=== PATIENT | male | born 1950 | race Hispanic/Latino ===

== ENCOUNTER 2019-08-23 19:11 | Emergency (ER) | payer MEDICARE ==
--- OUTSIDE RECORDS SUMMARY | 2019-08-23 19:14 | XMS REPORT ---
Author Author [facility] t Organization [facility] Address [address] [place] [address] Phone Unavailable Care Team Providers Care Shop Tailor Apprentice Name Role Phone Unavailable Unavailable Payers Payer Name Policy Type Policy Number Effective Date Expiration Date S ource Problems This patient has no known problems. Allergies, Adverse Reactions, Alerts Allergy Name Allergy Type Status Severity Reaction(s) Onset Date Inacti ve Date Treating Clinician Comments Source No Known Allergies DA Active U 2019-07-23 00:00:00 [facility] Medications This patient has no known medications. Procedures This patient has no known procedures. Results Test Description Test Time Test Comments Results Result Comments Source UA RFLX MICR CULT IF INDICATED 2019-07-23 18:48:00 Test Item UA COLOR (test code = COLU) Yellow Yellow UA APPEARANCE (test code = APPU) Clear Clear UA GLUCOSE DIPSTICK (test code = DGLUU) Negative Negative UA BILIRUBIN DIPSTICK (test code = BILU) Negative Negative UA KETONE DIPSTICK (test code = KETU) Negative mg/dL Negative UA SPECIFIC GRAVITY (test code = SGU) 1.012 <1.030 UA BLOOD DIPSTICK (test code = MAYTE) 2+ Negative A UA PH DIPSTICK (test code = ROSA) 6.0 5.0-8.0 UA PROTEIN DIPSTICK (test code = PROU) NEGATIVE mg/dL Negative UA UROBILINOGEN DIPSTICK (test code = URO) Negative mg/dL Negative UA NITRITE DIPSTICK (test code = MISHEL) Negative Negative UA LEUKOCYTE ESTERASE DIPSTICK (test code = LEUU) NEGATIVE Nega tive UA WBC (test code = WBCUR) 0-3 /HPF <4-5 < 10 WBC/HPF = PYURIA ABSENT URINE CULTURE NOT INDICATED UA RBC (test code = RBCU) 31-40 /HPF <4-5 A UA BACTERIA (test code = BACU) None /HPF None-Rare UA MUCUS (test code = MUCU) Rare /LPF <Rare SOURCE OF URINE: VOIDEDIndication for culture: Dysuria/Frequency COMPREHENSIVE METABOLIC [id number] 18:43:00* Test Item Value Reference Range Interpretation Comments SODIUM (test code = NA) 134 mmol/L 137-145 L POTASSIUM (test code = K) 3.6 mmol/L 3.4-5.0 N CHLORIDE (test code = CL) 98 mmol/L 98-107 N CARBON DIOXIDE (test code = CO2) 23 mmol/L 22-30 N GLUCOSE (test code = GLU) 137 mg/dL 74-106 H BLOOD UREA NITROGEN (test code = BUN) 16 mg/dL 9-20 N GLOMERULAR FILTRATION RATE (test code = GFR) 79 >60 The estimated glomerular filtration rate is computed usingpatient race, age (>18), sex, and serum creatinine. If anyof the needed data elements are missing the Laboratory cannot compute an estimation of the glomerular filtration rate. CREATININE (test code = CREAT) 1.0 mg/dL 0.7-1.3 N TOTAL PROTEIN (test code = PROT) 7.7 g/dL 6.3-8.2 N ALBUMIN (test code = ALB) 4.4 g/dL 3.5-5.0 N CALCIUM (test code = CA) 9.2 mg/dL 8.4-10.2 N BILIRUBIN TOTAL (test code = BILT) 0.9 mg/dL 0.2-1.3 N BILIRUBIN CONJUGATED (test code = BILCON) 0 mg/dL 0-0.3 N ~~~~~~~~~~~~~~~~~~~~~~~~~~~~~~~~~~~~~~~~~~~~~~~~~~~~~~~~~~~~CONJUGATED BILIRUBIN IS THE REPLACEMENT ASSAY FOR DIRECTBILIRUBIN.~~~~~~~~~~~~~~~~~~~~~~~~~~~~~~~~~~~~~~~~~~~~~~~~~~~~~~~~~~~~ BILIRUBIN UNCONJUGATED (test code = BILUNC) 0.7 mg/dL 0-1.1 N SGOT/AST (test code = AST) 26 U/L 15-46 N SGPT/ALT (test code = ALT) 26 U/L 13-69 N ALKALINE PHOSPHATASE (test code = ALKP) 86 U/L 38-126 N CBC W/AUTO [id number] 18:30:00* Test Item Value Reference Range Interpretation Comments WHITE BLOOD CELL (test code = WBC) 14.1 x10 3/uL 5.0-12.0 H RED BLOOD CELL (test code = RBC) 5.12 x10 6/uL 4.70-6.10 N HEMOGLOBIN (test code = HGB) 15.2 g/dL 14.0-18.0 N HEMATOCRIT (test code = HCT) 43.6 % 37.0-49.0 N MEAN CELL VOLUME (test code = MCV) 85 fL 80-94 N MEAN CELL HGB (test code = MCH) 29.7 pg 27-31 N MEAN CELL HGB CONCENTRATION (test code = MCHC) 34.9 g/dL 33-37 N RED CELL DISTRIBUTION WIDTH (test code = RDW) 13.0 % 11.5-15. 5 N PLATELET COUNT (test code = PLT) 274 x10 3/uL 130-400 N MEAN PLATELET VOLUME (test code = MPV) 9.6 fL 9.4-16.4 N NEUTROPHIL % (test code = NT%) 86.5 % 43-65 H IMMATURE GRANULOCYTE % (test code = IG%) 0.4 % 0.0-2.0 N LYMPHOCYTE % (test code = LY%) 8.9 % 20.5-45.5 L MONOCYTE % (test code = MO%) 4.1 % 5.5-11.7 L EOSINOPHIL % (test code = EO%) 0.0 % 0.9-2.9 L BASOPHIL % (test code = BA%) 0.1 % 0.2-1.0 L NUCLEATED RBC % (test code = NRBC%) 0.0 % 0-1.0 N NEUTROPHIL # (test code = NT#) 12.20 x10 3/uL 2.2-4.8 H IMMATURE GRANULOCYTE # (test code = IG#) 0.05 x10 3/uL 0-0.03 H LYMPHOCYTE # (test code = LY#) 1.25 x10 3/uL 1.3-2.9 L MONOCYTE # (test code = MO#) 0.58 x10 3/uL 0.3-0.8 N EOSINOPHIL # (test code = EO#) 0.00 x10 3/uL 0.0-0.2 N BASOPHIL # (test code = BA#) 0.01 x10 3/uL 0.0-0.1 N TROPONIN I [id number] 18:29:00* Test Item Value Reference Range Interpretation Comments TROPONIN I RAPID (test code = TROPIRAP) 0.01 ng/mL 0.00-0.079 N ISTAT TROPONIN I CRITERIA0.00-0.08 ng/mL - Negative>0.08 ng/mL - Positive The use of serial sampling and testing protocol is arecommended practice.An elevated troponin level alone is often not sufficient fordiagnosis of myocardial infarction. Troponin results obtained by different assays may vary.Evaluation of the extent of myocardial damage based onincrease of troponin would be valid only if similarmethodology is used.
[2019-08-23] MEDS ORDERED: LIDOCAINE JELLY 2% 10ML URO-JET ONE (19:57)
[2019-08-23] MEDS ORDERED: LIDOCAINE JELLY 2% 10ML URO-JET TOP ONE (20:00)
--- NOTE | 2019-08-23 20:15 | NUR ---
Urine output 500 mL upon Roberson catheter insertion
--- NOTE | 2019-08-23 20:25 | Emergency Department Note ---
History of Present Illnes History of Present Illness Chief Complaint: Genitourinary History of Present Illness This is a 69 year old male PRESENTS TO THE ER C/O SUPRAPUBIC ABD PAIN ONSET THIS AM AFTER URINARY CATHRETER REMOVED BY DR. PETIT AT 1030 THIS AM AND HAS NOT HAD ANY URINE OUTPUT SINCE; PT DENIES FEVER/CHILLS, N/V/D;. Historian: Patient Arrival Mode: Car Onset (how long ago): hour(s) (6) Location: supra pubic Quality: supra pubic pain Radiation: non-radiation Severity: moderate Onset quality: gradual Duration (how long): hour(s) (6) Timing of current episode: constant Progression: worsening Context: recent illness Relieving factors: none Exacerbating factors: none Associated symptoms: denies other symptoms Past Medical/Family History Physician Review I have reviewed the patient's past medical and family history. Any updates have been documented here. Past Medical History Recent Fever: No Clinical Suspicion of Infectio: No New/Unexplained Change in Ment: No Past Medical History: Hyperlipedemia Past Surgical History: None Social History Smoking Cessation: Never Smoker Alcohol Use: None Any Illegal Drug Use: No Other Last Tetanus: UTD Review of Systems Review of Systems Constitutional: no symptoms EENTM: no symptoms Cardiovascular: no symptoms Respiratory: no symptoms Gastrointestinal: no symptoms Genitourinary: as per HPI Musculoskeletal: no symptoms Neurological: no symptoms Psychological: no symptoms Endocrine: no symptoms Hematological/Lymphatic: no symptoms Review of other systems All other systems reviewed and negative. Physical Exam Related Data Allergies: Coded Allergies: No Known Allergies (Unverified , 08/23/19) Triage Vital Signs Vital Signs Date Time Temp Pulse Resp B/P (MAP) Pulse Ox O2 Delivery O2 Flow Rate FiO2 08/23/19 19:35 99.1 86 18 155/88 98 Vital signs reviewed: Yes Physical Exam CONSTITUTIONAL Constitutional: well-developed, well-nourished HENT HENT: normocephalic, atraumatic, oropharynx clear/moist, nose normal HENT L/R: left ext ear normal, right ext ear normal EYES Eyes: PERRL, conjunctivae normal NECK Neck: ROM normal PULMONARY Pulmonary: effort normal, breath sounds normal CARDIOVASCULAR Cardiovascular: regular rhythm, heart sounds normal, capillary refill normal, normal rate GASTROINTESTINAL Abdominal: soft, bowel sounds normal, tender (supra pubic ) GENITOURINARY Genitourinary: penis normal SKIN Skin: warm, dry MUSCULOSKELETAL Musculoskeletal: ROM normal NEUROLOGICAL Neurological: alert, oriented x 3, no gross motor or sensory deficits PSYCHOLOGICAL Psychological: mood/affect normal, judgement normal Critical Care Time Subsequent provider I assumed direction of critical care for this patient from another provider of my specialty. Assessment & Plan Assessment & Plan Final Impression: (1) Urinary retention due to benign prostatic hyperplasia Assessment & Plan pt with urinary retention after morton cath removed by dr petit this am, i spoke with dr petit, place 18 italian coude catheter morton placed 400 cc urine out d/c home to follow up with dr petit Depart Disposition: HOME, SELF-CARE Last Vital Signs Date Time Temp Pulse Resp B/P (MAP) Pulse Ox O2 Delivery O2 Flow Rate FiO2 08/23/19 20:02 80 20 151/81 100 08/23/19 19:35 99.1 Medications in the ED Lidocaine HCl 10 ml ONCE ONCE TOP Last administered on 08/23/19at 20:01; Admin Dose 10 ML; Start 08/23/19 at 20:00; Stop 08/23/19 at 20:01; Status DC Lidocaine HCl 10 ml STK-MED ONCE .ROUTE ; Start 08/23/19 at 19:57; Stop 08/23/19 at 19:52; Status DC SUMIT NICHOLAS MD August 23, 2019 20:25
[2019-08-23 20:45] VITALS: BP 142/83
== END 2019-08-23 20:51 | disposition home or self-care (01) ==
LOC: ER 19:11
DX: R10.30 Lower abdominal pain, unspecified (principal); N40.1 Benign prostatic hyperplasia with lower urinary tract symptoms; R33.8 Other retention of urine; E78.5 Hyperlipidemia, unspecified
CPT/HCPCS: 51700; 87086; 87186; 99282

== ENCOUNTER 2019-08-25 12:43 | Emergency (ER) | payer MEDICARE ==
[~2019-08-25] VITALS: Ht 165.1 cm; Wt 79.4 kg
--- OUTSIDE RECORDS SUMMARY | 2019-08-25 12:46 | XMS REPORT ---
Author Author [facility] Organization [facility] Address [address] [place] [address] Phone Unavailable Care Team Providers Care Medicaid Service Coordinator Name Role Phone NONSTAFF PCP Unavailable Payers Payer Name Policy Type Policy Number Effective Date Expiration Date S john [employer] NA [facility] Problems Condition Name Condition Details Condition Category Status Onset Date Resolution Date Last Treatment Date Treating Clinician Comments Source Urinary retention due to benign prostatic hyperplasia Problem Ac tive [facility] Allergies, Adverse Reactions, Alerts Allergy Name Allergy Type Status Severity Reaction(s) Onset Date Inacti ve Date Treating Clinician Comments Source No Known Allergies DA Active U 2019-07-23 00:00:00 [facility] Social History Social Habit Start Date Stop Date Quantity Comments Source Sex Assigned At 1950 00:00:00 1950 00:[birth year]:00 Male [facility] Medications This patient has no known medications. Procedures This patient has no known procedures. Plan of Care Planned Activity Planned Date Details Comments Source Instructions Roberson Catheter Care [facility] Instructions Urinary Retention [facility] Encounters Start Date/Time End Date/Time Encounter Type Admission Type [facility] Facility Care Department Encounter ID Source 2019-08-23 19:11:00 2019-08-23 20:51:00 Departed Emergency Room [facility] [id number] [facility] Results Test Description Test Time Test Comments [...] URINE: VOIDEDIndication for culture: Dysuria/Frequency COMPREHENSIVE METABOLIC [id number] 18:43:00* Test Item Value Reference Range Interpretation [...] ALKP) 86 U/L 38-126 N CBC W/AUTO [id number] 18:30:00* Test Item Value Reference Range Interpretation [...] 0.01 x10 3/uL 0.0-0.1 N TROPONIN I [id number] 18:29:00* Test Item Value Reference Range Interpretation [...]
--- NOTE | 2019-08-25 13:04 | Emergency Department Note ---
History of Present Illnes History of Present Illness Chief Complaint: Genitourinary History of Present Illness This is a 69 year old male . Chief Complaint Comment HAS BLOOD IN URINE AROUND MEATUS AND IN BAG. HAS INDWELLING MENDEZ SINCE LAST NIGHT. Historian: Patient Arrival Mode: Car Onset (how long ago): day(s) (today) Radiation: non-radiation Onset quality: sudden Duration (how long): day(s) (today) Timing of current episode: constant Progression: other (denies pain ) Context: recent illness, recent surgery, recent immobilization, recent travel, trauma/injury, new medications, hx of DVT/PE, non-compliance w/ medications, other Relieving factors: none Exacerbating factors: none Treatments prior to arrival: none (KEVIN GLORIA NP) Past Medical/Family History Physician Review I have reviewed the patient's past medical and family history. Any updates have been documented here. (KEVIN GLORIA NP) Past Medical History Recent Fever: No Clinical Suspicion of Infectio: No New/Unexplained Change in Ment: No Past Medical History: Hyperlipedemia Other Medical History: PROSTATE Past Surgical History: None (KEVIN GLORIA NP) Social History Smoking Cessation: Never Smoker Alcohol Use: None Any Illegal Drug Use: No TB Exposure/Symptoms: No (KEVIN GLORIA NP) Family History Family history of heart diseas: No (KEVIN GLORIA NP) Other Last Tetanus: UTD Any Pre-Existing Lines (PICC,: Yes (mendez cath ) (KEVIN GLORIA NP) Review of Systems Review of Systems Constitutional: no symptoms EENTM: no symptoms Cardiovascular: no symptoms Respiratory: no symptoms Gastrointestinal: no symptoms Genitourinary: no symptoms, hematuria; discharge, dysuria, frequency, pain Musculoskeletal: no symptoms Neurological: no symptoms Psychological: no symptoms Endocrine: no symptoms Hematological/Lymphatic: no symptoms Review of other systems All other systems reviewed and negative. (KEVIN GLORIA NP) Physical Exam Related Data Allergies: Coded Allergies: No Known Allergies (Unverified , 08/23/19) Triage Vital Signs Vital Signs Date Time Temp Pulse Resp B/P (MAP) Pulse Ox O2 Delivery O2 Flow Rate FiO2 08/25/19 12:47 98.5 87 16 156/79 97 Vital signs reviewed: Yes (KEVIN GLORIA NP) Physical Exam CONSTITUTIONAL Constitutional: well-developed, well-nourished HENT HENT: normocephalic, atraumatic, oropharynx clear/moist, nose normal HENT L/R: left ext ear normal, right ext ear normal EYES Eyes: PERRL, conjunctivae normal NECK Neck: ROM normal PULMONARY Pulmonary: effort normal, breath sounds normal CARDIOVASCULAR Cardiovascular: regular rhythm, heart sounds normal, capillary refill normal, normal rate GASTROINTESTINAL Abdominal: soft, nontender, bowel sounds normal GENITOURINARY Genitourinary: exam deferred, other (noted sm blood clot tpo collection bag - denies pain / ua retention ) SKIN Skin: warm, dry MUSCULOSKELETAL Musculoskeletal: ROM normal NEUROLOGICAL Neurological: alert, oriented x 3, no gross motor or sensory deficits PSYCHOLOGICAL Psychological: mood/affect normal, judgement normal (KEVIN GLORIA NP) Critical Care Time Subsequent provider I assumed direction of critical care for this patient from another provider of my specialty. (KEVIN GLORIA NP) Assessment & Plan Reassessment Reassessment time: 13:00 Reassessment 69y m presented to ed c/o blood clot to mendez collection bag -denies pain / ua retention - pt seen last night in ed for ua retention hx bph, had ofley placed - woke up this am w/ blood clot to mendez bag pt concerned - Dr Sheriff in eval pt status - Dr Sheriff spoke w/ Dr Amara reed to d/c home f/u in office (KEVIN GLORIA NP) Assessment & Plan Final Impression: (1) HEMATURIA, UNSPECIFIED Assessment & Plan plan : 1. f/u w/ uro in 1-2 days w/o fail 2. return to ed as needed (KEVIN GLORIA INDUSTRIAL TECHNOLOGY EDUCATION TEACHER) Last Vital Signs Date Time Temp Pulse Resp B/P (MAP) Pulse Ox O2 Delivery O2 Flow Rate FiO2 08/25/19 12:47 98.5 87 16 156/79 97 (KEVIN GLORIA NP) Physician Attestation Provider Attestation The patient's history, exam findings, diagnostics, and a summary of any interventions or procedures was reviewed in detail with our JAIME. I personally interviewed and examined the patient, and I have reviewed and agree with the HPI andexam. My personal exam shows no abd tenderness, no CVAT, Mendez draining normal appearing yellow urine, small clot in Mendez bag. I confirm the diagnosis as documented by the JAIME. I have reviewed and agree with the care plan articulated in the disposition section. (BOB SHERIFF MD) KEVIN GLORIA NP August 25, 2019 13:04 BOB SHERIFF MD August 25, 2019 14:38
== END 2019-08-25 13:08 | disposition home or self-care (01) ==
LOC: ER 12:43
DX: R31.9 Hematuria, unspecified (principal); E78.5 Hyperlipidemia, unspecified
CPT/HCPCS: 99282

== ENCOUNTER 2019-09-29 23:01 | Emergency (ER) | payer MEDICARE ==
[~2019-09-29] VITALS: Ht 167.6 cm; Wt 74.8 kg
--- NOTE | 2019-09-29 23:42 | Emergency Department Note ---
History of Present Illnes History of Present Illness Chief Complaint: problem with Morton catheter History of Present Illness This is a 69 year old male, with a history of BPH, who presents with a 12 hour history of being unable to void, as he has had no urine produced from his Morton catheter bag. Patient states that he's had an indwelling catheter since 07/24/19, when he developed acute urinary retention. Since that time, patient has had the Morton catheter changed out every month. He is due to have this current catheter changed out on 10/02/2019. However, he Does not seem to be flowing, and patient is having significant pressure in the suprapubic area. He denies any nausea, vomiting, fever, chills, or dysuria. Historian: Patient Arrival Mode: Car Fuel Cell Technician Required: No Onset (how long ago): hour(s) (12) Location: suprapubic area, cramping and "a lot of pressure." Radiation: Reports non-radiation Severity: moderate Duration (how long): hour(s) (12) Timing of current episode: constant Progression: worsening Context: Reports recent surgery (Prostate biopsy done on 09/20/2019, and patient to see Dr. Conley ) Exacerbating factors: none Associated symptoms: Reports denies other symptoms Treatments prior to arrival: none Risk factors: elderly with multiplse comorbidities Previous service: medications given Past Medical/Family History Physician Review I have reviewed the patient's past medical and family history. Any updates have been documented here. Past Medical History Recent Fever: No Clinical Suspicion of Infectio: No New/Unexplained Change in Ment: No Past Medical History: Hyperlipedemia Other Medical History: PROSTATE Past Surgical History: None Social History Smoking Cessation: Never Smoker Alcohol Use: None Any Illegal Drug Use: No TB Exposure/Symptoms: No Physically hurt or threatened: No Family History Family history of heart diseas: No Other Last Tetanus: UTD Any Pre-Existing Lines (PICC,: No Review of Systems Review of Systems Constitutional: Reports no symptoms EENTM: Reports no symptoms Cardiovascular: Reports no symptoms Respiratory: Reports no symptoms Gastrointestinal: Reports no symptoms Genitourinary: Reports other (suprapubic fullness/pressure that has progressed throughout the day, with no urine in the catheter bag) Musculoskeletal: Reports no symptoms Integumentary: Reports no symptoms Review of other systems: All other systems negative Physical Exam Related Data Allergies: Coded Allergies: No Known Allergies (Unverified , 08/23/19) Vital signs reviewed: Yes Physical Exam CONSTITUTIONAL Constitutional: Present well-developed, Present well-nourished HENT HENT: Present normocephalic, Present atraumatic, Present oropharynx clear/moist, Present nose normal EYES Eyes: Reports PERRL, Reports conjunctivae normal NECK Neck: Present ROM normal PULMONARY Pulmonary: Present effort normal, Present breath sounds normal CARDIOVASCULAR Cardiovascular: Present regular rhythm, Present heart sounds normal, Present ca pillary refill normal, Present normal rate GASTROINTESTINAL Abdominal: Present soft, Present distension, Present tender GENITOURINARY SKIN Skin: Present warm, Present dry MUSCULOSKELETAL NEUROLOGICAL PSYCHOLOGICAL Assessment & Plan Medical Decision Making MDM New morton catheter placed by Lacy Almaguer RN, without difficulty. The new catheter drained @ 2100 cc of clear urine. Pt felt MUCH better. Follow-up with Dr. Kelly, as scheduled on 10/02/2019 Continue current medications. Morton care, as previously instructed. Assessment & Plan Final Impression: (1) Obstructed Morton catheter (2) Urinary catheter (Morton) change required (3) Urinary retention due to benign prostatic hyperplasia Depart Disposition: HOME, SELF-CARE GHAZAL SANTO MD Sep 29, 2019 23:42
--- NOTE | 2019-09-30 00:40 | NUR ---
PT TOLERATED DC OF OLD CATH AND REPLACEMENT CATH WELL. NOTED BLOOD CLOT CAME OUT WITH OLD CATH. PT STATES INSTANT PAIN RELIEF WHEN NEW CATH INSERTED AND URINE STARTED TO FLOW.
--- NOTE | 2019-09-30 00:45 | NUR ---
1300 CC URINE OUTPUT NOTED TO BAG HANGING ON SIDE OF BED
[2019-09-30 01:59] VITALS: BP 140/73
--- NOTE | 2019-09-30 01:59 | NUR ---
CHANGED MENDEZ BAG TO LEG BAG. NOTED TOTAL OUTPUT FOR PT IS 2100. INFORMED. PT STATES HE FEELS GREAT.
== END 2019-09-30 01:59 | disposition home or self-care (01) ==
LOC: FSED 09-30
DX: Z46.6 Encounter for fitting and adjustment of urinary device (principal); T83.091A Other mechanical complication of indwelling urethral catheter, initial encounter; R33.9 Retention of urine, unspecified; E78.5 Hyperlipidemia, unspecified
CPT/HCPCS: 51700; 99282

== ENCOUNTER 2019-12-20 11:24 | Inpatient (IN) | payer MEDICARE ==
[~2019-12-20] VITALS: Ht 167.6 cm; Wt 66.5 kg
[2019-12-20] MEDS ORDERED: MORPHINE SULFATE 2 MG/ML SYR 1ML IV STA (11:58)
[2019-12-20] MEDS ORDERED: ONDANSETRON HCL INJ 2MG/ML 2ML 2 MG/ML VIAL IV STA (11:58)
[2019-12-20] MEDS ORDERED: SODIUM CHLORIDE 0.9% 500ML 500 ML IV ONE (12:00)
[2019-12-20 12:29] LABS: BASOPHILS % 0.2 % (0.0-1.0); EOSINOPHILS % 0.3 % (0.0-6.0); HEMATOCRIT 40.6 % (38.2-49.6); HEMOGLOBIN 13.7 g/dL (14.0-18.0); LYMPHOCYTES # (AUTO) 1.9 (1.0-3.2); LYMPHOCYTES % 16.1 % (18.0-39.1); MEAN CORPUSCULAR HEMOGLOBIN 27.6 pg (28-32); MEAN CORPUSCULAR HGB CONC 33.7 g/dL (31-35); MEAN CORPUSCULAR VOLUME 81.9 fL (81-99); MONOCYTES # (AUTO) 1.2 (0.2-0.8); MONOCYTES % 9.9 % (4.4-11.3); NEUTROPHILS # (AUTO) 8.7 (2.1-6.9); NEUTROPHILS % 73.1 % (38.7-80.0); PLATELET COUNT 341 x10e3/uL (140-360); RED BLOOD COUNT 4.96 x10e6/uL (4.3-5.7); RED CELL DISTRIBUTION WIDTH 13.3 % (11.7-14.4)
[2019-12-20 12:35] LABS: INR 0.98; PROTHROMBIN TIME 13.5 seconds (11.9-14.5)
[2019-12-20 12:36] LABS: PARTIAL THROMBOPLASTIN TIME 21.7 seconds (23.8-35.5)
[2019-12-20 12:42] LABS: ALBUMIN 4.5 g/dL (3.5-5.0); ALBUMIN/GLOBULIN RATIO 1.5 (0.8-2.0); CREATININE, SERUM 1.3 mg/dL (0.72-1.25)
[2019-12-20 12:50] LABS: CREATINE KINASE MB 0.7 ng/mL (0-5.0)
[2019-12-20] MEDS ORDERED: MORPHINE SULFATE 2 MG/ML SYR 1ML IV PRN (14:00)
[2019-12-20] MEDS ORDERED: MORPHINE SULFATE INJ 4 MG/ML INJ 1ML IV PRN (14:00)
[2019-12-20] MEDS ORDERED: SODIUM CHLORIDE 0.9% 1000ML 1,000 ML IV SCH (14:00)
[2019-12-20 14:09] LABS: CLARITY,URINE SL CLOUDY (CLEAR); COLOR,URINE YELLOW (YELLOW)
[2019-12-20 14:10] LABS: BILIRUBIN,URINE NEGATIVE (NEGATIVE); KETONES,URINE NEGATIVE (NEGATIVE); LEUKOCYTE ESTERASE ,URINE MODERATE (NEGATIVE); NITRITE,URINE POSITIVE (NEGATIVE); PROTEIN,URINE DIPSTICK 1+ (NEGATIVE); URINE UROBILINOGEN 0.2 mg/dL (0.2 - 1)
[2019-12-20 14:22] LABS: AMORPHOUS SEDIMENT,URINE MODERATE (FEW); BACTERIA,URINE MANY /HPF; EPITHELIAL CELLS,URINE FEW /LPF; RBC,URINE 0-5 /HPF (0-5); TRIPLE PHOSPHATE CRYSTAL,UR MODERATE (FEW)
[2019-12-20] MEDS: CEFTRIAXONE SOD 1 GM/NS 50 ML 50 ML IV SCH (16:25)
[2019-12-20] MEDS ORDERED: FLOMAX0.4 MG PO (16:53)
[2019-12-20 17:10] VITALS: BP 177/95
[2019-12-20 17:37] VITALS: BP 177/95
[2019-12-20 17:45] VITALS: BP 177/95
[2019-12-20 18:28] VITALS: BP 154/78
[2019-12-20] MEDS: ONDANSETRON HCL INJ 2MG/ML 2ML 2 MG/ML VIAL IV PRN (19:40)
[2019-12-20 20:00] VITALS: BP 148/83
[2019-12-20] MEDS ORDERED: HYDROCODONE/APAP 5MG-325MG TAB PO PRN (20:00)
[2019-12-20] MEDS ORDERED: ACETAMINOPHEN 325 MG TAB PO PRN (20:00)
[2019-12-20] MEDS ORDERED: HYDRALAZINE HCL 20 MG/ML VIAL IV PRN (20:00)
[2019-12-20 21:00] VITALS: BP 148/83
[2019-12-20] MEDS: FAMOTIDINE 20 MG TAB PO SCH (21:50)
[2019-12-20] MEDS: TAMSULOSIN HCL 0.4 MG CAP PO SCH (21:50)
[2019-12-21] VITALS (8 sets, daily range): BP systolic 108–141; BP diastolic 63–80
[2019-12-21] MEDS: CEFTRIAXONE SOD 1 GM/NS 50 ML 50 ML IV SCH ×2 (03:00→13:44)
[2019-12-21] MEDS ORDERED: SODIUM CHLORIDE 0.9% 250ML 250 ML ONE (03:52)
[2019-12-21] MEDS: MORPHINE SULFATE INJ 4 MG/ML INJ 1ML IV PRN ×2 (05:46→11:40)
[2019-12-21 06:17] LABS: BASOPHILS % 0.1 % (0.0-1.0); EOSINOPHILS # (AUTO) 0.1 (0.0-0.4); EOSINOPHILS % 0.4 % (0.0-6.0); HEMATOCRIT 39.2 % (38.2-49.6); HEMOGLOBIN 13.4 g/dL (14.0-18.0); LYMPHOCYTES # (AUTO) 1.7 (1.0-3.2); LYMPHOCYTES % 15.4 % (18.0-39.1); MEAN CORPUSCULAR HEMOGLOBIN 28.6 pg (28-32); MEAN CORPUSCULAR HGB CONC 34.2 g/dL (31-35); MEAN CORPUSCULAR VOLUME 83.8 fL (81-99); MONOCYTES # (AUTO) 1.1 (0.2-0.8); MONOCYTES % 9.6 % (4.4-11.3); NEUTROPHILS # (AUTO) 8.4 (2.1-6.9); NEUTROPHILS % 74.1 % (38.7-80.0); PLATELET COUNT 267 x10e3/uL (140-360); RED BLOOD COUNT 4.68 x10e6/uL (4.3-5.7); RED CELL DISTRIBUTION WIDTH 13.3 % (11.7-14.4)
[2019-12-21] MEDS: FAMOTIDINE 20 MG TAB PO SCH ×2 (06:36→16:54)
[2019-12-21 06:44] LABS: ALANINE AMINOTRANSFERASE 9 IU/L (0-55); ALBUMIN 3.8 g/dL (3.5-5.0); ALBUMIN/GLOBULIN RATIO 1.4 (0.8-2.0); ALKALINE PHOSPHATASE 53 IU/L (40-150); ANION GAP 12.1 mmol/L (8-16); BLOOD UREA NITROGEN 23 mg/dL (7-26); BUN/CREATININE RATIO 19 (6-25); CARBON DIOXIDE 23 mmol/L (22-29); CHLORIDE 99 mmol/L (98-107); CREATININE, SERUM 1.18 mg/dL (0.72-1.25); EST GLOMERULAR FILTRATION RATE > 60 ML/MIN (60-); GLUCOSE 102 mg/dL (74-118); POTASSIUM 4.1 mmol/L (3.5-5.1); SODIUM 130 mmol/L (136-145)
[2019-12-21] MEDS: TAMSULOSIN HCL 0.4 MG CAP PO SCH ×2 (08:01→20:00)
[2019-12-21] MEDS ORDERED: MELATONIN 5 MG TABLET PO PRN (08:45)
[2019-12-21] MEDS: ONDANSETRON HCL INJ 2MG/ML 2ML 2 MG/ML VIAL IV PRN (11:40)
[2019-12-21] MEDS: DOCUSATE SODIUM 100 MG CAP PO PRN (16:54)
[2019-12-21] MEDS: MORPHINE SULFATE 2 MG/ML SYR 1ML IV PRN (19:29)
[2019-12-22] VITALS (9 sets, daily range): BP systolic 115–140; BP diastolic 64–76
[2019-12-22] MEDS: CEFTRIAXONE SOD 1 GM/NS 50 ML 50 ML IV SCH (02:20)
[2019-12-22 05:40] LABS: BASOPHILS % 0.1 % (0.0-1.0); EOSINOPHILS # (AUTO) 0.2 (0.0-0.4); EOSINOPHILS % 1.6 % (0.0-6.0); HEMOGLOBIN 11.9 g/dL (14.0-18.0); LYMPHOCYTES # (AUTO) 1.5 (1.0-3.2); LYMPHOCYTES % 15.7 % (18.0-39.1); MEAN CORPUSCULAR VOLUME 82.4 fL (81-99); MONOCYTES # (AUTO) 0.9 (0.2-0.8); MONOCYTES % 9.3 % (4.4-11.3); NEUTROPHILS # (AUTO) 7.1 (2.1-6.9); NEUTROPHILS % 72.9 % (38.7-80.0); PLATELET COUNT 268 x10e3/uL (140-360); RED BLOOD COUNT 4.25 x10e6/uL (4.3-5.7); RED CELL DISTRIBUTION WIDTH 13.3 % (11.7-14.4)
[2019-12-22] MEDS: FAMOTIDINE 20 MG TAB PO SCH ×2 (05:45→17:50)
[2019-12-22 06:01] LABS: ALANINE AMINOTRANSFERASE 8 IU/L (0-55); ALBUMIN 3.6 g/dL (3.5-5.0); ALBUMIN/GLOBULIN RATIO 1.4 (0.8-2.0); ALKALINE PHOSPHATASE 47 IU/L (40-150); ANION GAP 11.8 mmol/L (8-16); BLOOD UREA NITROGEN 25 mg/dL (7-26); BUN/CREATININE RATIO 21 (6-25); CALCIUM 7.8 mg/dL (8.4-10.2); CARBON DIOXIDE 23 mmol/L (22-29); CHLORIDE 98 mmol/L (98-107); CREATININE, SERUM 1.19 mg/dL (0.72-1.25); EST GLOMERULAR FILTRATION RATE > 60 ML/MIN (60-); GLUCOSE 88 mg/dL (74-118); POTASSIUM 3.8 mmol/L (3.5-5.1); SODIUM 129 mmol/L (136-145)
[2019-12-22] MEDS: MORPHINE SULFATE 2 MG/ML SYR 1ML IV PRN ×3 (07:13→20:25)
[2019-12-22] MEDS: ONDANSETRON HCL INJ 2MG/ML 2ML 2 MG/ML VIAL IV PRN ×2 (07:13→20:25)
[2019-12-22] MEDS: TAMSULOSIN HCL 0.4 MG CAP PO SCH ×2 (08:07→20:24)
[2019-12-22] MEDS: CEFEPIME 1GM/NS 0.9% 50 ML 50 ML IV SCH (11:04)
[2019-12-22] MEDS ORDERED: PROPOFOL IV EMULSION 10 MG/ML 20 ML VIAL ONE (12:44)
[2019-12-22] MEDS ORDERED: DEXAMETHASONE SOD PHOS INJ 4 MG/ML VIAL ONE (12:44)
[2019-12-22] MEDS ORDERED: SEVOFLURANE INHAL SOLN 250 ML PEN BTL ONE (12:44)
[2019-12-22] MEDS ORDERED: LIDOCAINE HCL 2% LOCAL INJ 5 ML SDV VIAL INJ ONE (12:44)
[2019-12-22] MEDS ORDERED: ONDANSETRON HCL INJ 2MG/ML 2ML 2 MG/ML VIAL ONE (12:44)
[2019-12-22] MEDS ORDERED: MIDAZOLAM HCL 2 MG/2 ML VIAL ONE (13:44)
[2019-12-22] MEDS ORDERED: FENTANYL CITRATE/PF 100MCG/2 ML INJ ONE (13:44)
[2019-12-22] MEDS ORDERED: IOPAMIDOL 300MG/ML 50ML INFUS..BTL IV ONE (16:15)
[2019-12-22] MEDS ORDERED: B&O 60MG R/S 60 MG SUPP PR ONE (16:15)
[2019-12-22] MEDS: DOCUSATE SODIUM 100 MG CAP PO PRN (17:50)
[2019-12-22] MEDS ORDERED: ACETAMINOPHEN325 M1 PO (20:14)
[2019-12-23] VITALS: BP 109/67
[2019-12-23 04:00] VITALS: BP 112/67
[2019-12-23] MEDS: MORPHINE SULFATE 2 MG/ML SYR 1ML IV PRN (06:45)
[2019-12-23] MEDS: ONDANSETRON HCL INJ 2MG/ML 2ML 2 MG/ML VIAL IV PRN (06:46)
[2019-12-23 06:53] LABS: BASOPHILS % 0.1 % (0.0-1.0); EOSINOPHILS % 0.2 % (0.0-6.0); HEMOGLOBIN 12.2 g/dL (14.0-18.0); LYMPHOCYTES # (AUTO) 1.1 (1.0-3.2); LYMPHOCYTES % 10.9 % (18.0-39.1); MEAN CORPUSCULAR HEMOGLOBIN 28.6 pg (28-32); MEAN CORPUSCULAR HGB CONC 33.9 g/dL (31-35); MEAN CORPUSCULAR VOLUME 84.3 fL (81-99); MONOCYTES # (AUTO) 0.7 (0.2-0.8); MONOCYTES % 6.4 % (4.4-11.3); NEUTROPHILS # (AUTO) 8.3 (2.1-6.9); NEUTROPHILS % 81.8 % (38.7-80.0); PLATELET COUNT 283 x10e3/uL (140-360); RED BLOOD COUNT 4.27 x10e6/uL (4.3-5.7); RED CELL DISTRIBUTION WIDTH 13.2 % (11.7-14.4)
[2019-12-23 07:16] LABS: ANION GAP 12.1 mmol/L (8-16); BLOOD UREA NITROGEN 17 mg/dL (7-26); BUN/CREATININE RATIO 22 (6-25); CALCIUM 8.2 mg/dL (8.4-10.2); CARBON DIOXIDE 24 mmol/L (22-29); CHLORIDE 98 mmol/L (98-107); CREATININE, SERUM 0.76 mg/dL (0.72-1.25); EST GLOMERULAR FILTRATION RATE > 60 ML/MIN (60-); GLUCOSE 102 mg/dL (74-118); PHOSPHORUS 3.5 MG/DL (2.3-4.7); POTASSIUM 4.1 mmol/L (3.5-5.1); SODIUM 130 mmol/L (136-145)
[2019-12-23 08:00] VITALS: BP 119/74
[2019-12-23] MEDS: FAMOTIDINE 20 MG TAB PO SCH ×2 (08:30→15:59)
[2019-12-23 09:05] VITALS: BP 119/74
[2019-12-23] MEDS: TAMSULOSIN HCL 0.4 MG CAP PO SCH (09:27)
[2019-12-23] MEDS: CEFEPIME 1GM/NS 0.9% 50 ML 50 ML IV SCH (10:00)
[2019-12-23 12:00] VITALS: BP 120/67
[2019-12-23] MEDS ORDERED: CIPRO500 MG PO (15:17)
[2019-12-23 16:00] VITALS: BP 117/68
== END 2019-12-23 16:58 | disposition home or self-care (01) | DRG 659 ==
LOC: ER 11:40 → ERHOLD 13:55 → MED/SURG3 17:02
PROVIDERS: ADMIT Internal Medicine; ATTEND Internal Medicine
PROC: 0T768DZ Dilation of Right Ureter with Intraluminal Device, Via Natural or Artificial Opening Endoscopic (ICD-10-PCS; 2019-12-22)
PROC: BT1D1ZZ Fluoroscopy of Right Kidney, Ureter and Bladder using Low Osmolar Contrast (ICD-10-PCS; principal; 2019-12-22 16:00)
DX: T83.511A Infection and inflammatory reaction due to indwelling urethral catheter, initial encounter (principal); A41.9 Sepsis, unspecified organism; E87.1 Hypo-osmolality and hyponatremia; N17.9 Acute kidney failure, unspecified; N13.6 Pyonephrosis; Z16.35 Resistance to multiple antimicrobial drugs; C61 Malignant neoplasm of prostate; D64.9 Anemia, unspecified; R59.0 Localized enlarged lymph nodes; N32.3 Diverticulum of bladder; Z85.46 Personal history of malignant neoplasm of prostate; Z87.891 Personal history of nicotine dependence; Z80.9 Family history of malignant neoplasm, unspecified; B96.20 Unspecified Escherichia coli [E. coli] as the cause of diseases classified elsewhere; B96.5 Pseudomonas (aeruginosa) (mallei) (pseudomallei) as the cause of diseases classified elsewhere
CPT/HCPCS: 36415; 74176; 74420; 80048; 80053; 81001; 82550; 82553; 83735; 84100; 84484; 85025; 85610; 85730; 87086; 87186; 99284; C1769; C2617; J0692; J0696; J1100; J2001; J2250; J2270; J2405; J3010; J7030; J7040; J7050; U0002

== ENCOUNTER 2020-01-08 21:43 | Inpatient (IN) | payer MEDICARE ==
[~2020-01-08] VITALS: Ht 167.6 cm; Wt 68.5 kg
[~2020-01-08 21:43] MED LIST: ACETAMINOPHEN325 M1 PO; CIPRO500 MG PO; FLOMAX0.4 MG PO
--- NOTE | 2020-01-08 22:23 | Emergency Department Note ---
History of Present Illnes History of Present Illness Chief Complaint: Genitourinary History of Present Illness This is a 69 year old male Chief Complaint Comment 69 Y/O MALE PT AAOX3 PRESENTS TO ED WITH HEMATURIA X2 DAYS, SUBJECTIVE FEVER SINCE LAST NIGHT; PT TOOK TYLENOL PO AT APPROX 1900, AFEBRILE AT THIS TIME; PT WAS DX'D WITH 6.4 X 8.4 X 6.7 CM NECROTIC PELVIC MASS CENTERED TO PROSTATE EXTENDING INTO POSTERIOR BLADDER, RECEIVED REF TODAY FOR ONCOLOGY. Historian: Patient, Family Member Arrival Mode: Car Pharmacy Clerk Required: No Onset (how long ago): day(s) (2) Location: Urine Quality: bloody Radiation: Reports non-radiation Severity: mild Onset quality: gradual Duration (how long): day(s) (2) Timing of current episode: constant Progression: unchanged Chronicity: new Context: Reports recent illness (Prostate cancer); Denies recent surgery Relieving factors: none Exacerbating factors: none Associated symptoms: Reports denies other symptoms Treatments prior to arrival: none Past Medical/Family History Physician Review I have reviewed the patient's past medical and family history. Any updates have been documented here. Past Medical History Recent Fever: Yes Clinical Suspicion of Infectio: Yes New/Unexplained Change in Ment: No Past Medical History: Cancer Other Medical History: Prostate cancer BPH RENAL STENT Past Surgical History: Hernia Repair Other Surgery: HERNIA REPAIR ABOUT 10 YEARS AGO Other Last Tetanus: UTD Review of Systems Review of Systems Constitutional: Reports no symptoms EENTM: Reports no symptoms Cardiovascular: Reports no symptoms Respiratory: Reports no symptoms Gastrointestinal: Reports no symptoms Genitourinary: Reports as per HPI Musculoskeletal: Reports no symptoms Integumentary: Reports no symptoms Neurological: Reports no symptoms Psychological: Reports no symptoms Endocrine: Reports no symptoms Hematological/Lymphatic: Reports no symptoms Physical Exam Related Data Allergies: Coded Allergies: No Known Allergies (Unverified , 08/23/19) Triage Vital Signs Vital Signs Date Time Temp Pulse Resp B/P (MAP) Pulse Ox O2 Delivery O2 Flow Rate FiO2 01/08/20 22:01 98.2 96 17 103/59 98 Room Air Vital signs reviewed: Yes Physical Exam CONSTITUTIONAL Constitutional: Present well-developed, Present well-nourished HENT HENT: Present normocephalic, Present atraumatic, Present oropharynx clear/moist, Present nose normal HENT L/R: Present left ext ear normal, Present right ext ear normal EYES Eyes: Reports PERRL, Reports conjunctivae normal NECK Neck: Present ROM normal PULMONARY Pulmonary: Present effort normal, Present breath sounds normal CARDIOVASCULAR Cardiovascular: Present regular rhythm, Present heart sounds normal, Present capillary refill normal, Present normal rate GASTROINTESTINAL Abdominal: Present soft, Present nontender, Present bowel sounds normal GENITOURINARY Genitourinary: Present other (indwelling morton with bloody urine) SKIN Skin: Present warm, Present dry MUSCULOSKELETAL Musculoskeletal: Present ROM normal NEUROLOGICAL Neurological: Present alert, Present oriented x 3, Present no gross motor or sensory deficits PSYCHOLOGICAL Psychological: Present mood/affect normal, Present judgement normal Results Laboratory Lab results reviewed: Yes Assessment & Plan Medical Decision Making MDM 69 y.o M presents for hematuria and fever. Afebrile here. Exam shows indwelling morton with bloody urine. VSS, within acceptable limits. Diff includes UTI vs prostate CA among others. Labs show LA 2.9 and WBC 16. No other SIRS criteria and doubt sepsis. WBC and LA likely 2/2 known necrotic prostate CA. Will admit for complicated UTI in setting of prostate cancer. Discussed with Dr. Mahamed Ayala who has agreed to admission. Reassessment Reassessment time: 22:22 Reassessment Well appearing, NAD Assessment & Plan Final Impression: (1) UTI (urinary tract infection) Depart Disposition: ADMITTED Last Vital Signs Date Time Temp Pulse Resp B/P (MAP) Pulse Ox O2 Delivery O2 Flow Rate FiO2 01/08/20 22:01 98.2 96 17 103/59 98 Room Air Home Meds Active Scripts Ciprofloxacin Hcl (CIPRO) 500 Mg Tablet, 500 MG PO Q12H, #20 TAB 0 Refills Prov:AASHISH REYNOSO NP 12/23/19 Acetaminophen (ACETAMINOPHEN) 325 Mg Tablet, 650 MG PO Q6H PRN for Mild Pain (1- 3) or Fever>100.8 for 30 Days, #30 TAB Prov:AASHISH REYNOSO NP 12/22/19 Reported Medications Tamsulosin Hcl* (FLOMAX*) 0.4 Mg Cap, 0.4 MG PO BID@0900,2100, #30 CAP 12/20/19 CARLOTA VELAZQUEZ MD Jan 08, 2020 22:23
[2020-01-08 22:25] LABS: BASOPHILS % 0.1 % (0.0-1.0); EOSINOPHILS % 0.1 % (0.0-6.0); HEMOGLOBIN 11.7 g/dL (14.0-18.0); MEAN CORPUSCULAR HEMOGLOBIN 28.1 pg (28-32); MEAN CORPUSCULAR HGB CONC 33.4 g/dL (31-35); MEAN CORPUSCULAR VOLUME 83.9 fL (81-99); MONOCYTES # (AUTO) 1.6 (0.2-0.8); MONOCYTES % 9.3 % (4.4-11.3); NEUTROPHILS # (AUTO) 14.3 (2.1-6.9); NEUTROPHILS % 83.4 % (38.7-80.0); PLATELET COUNT 260 x10e3/uL (140-360); RED BLOOD COUNT 4.17 x10e6/uL (4.3-5.7); RED CELL DISTRIBUTION WIDTH 13.7 % (11.7-14.4)
[2020-01-08 22:30] LABS: INR 1.12
[2020-01-08 22:31] LABS: PARTIAL THROMBOPLASTIN TIME 29.9 seconds (23.8-35.5)
[2020-01-08 22:40] LABS: ALBUMIN/GLOBULIN RATIO 0.8 (0.8-2.0); ANION GAP 15.5 mmol/L (8-16); CALCIUM 8.7 mg/dL (8.4-10.2); CREATININE, SERUM 1.22 mg/dL (0.72-1.25); POTASSIUM 3.5 mmol/L (3.5-5.1)
[2020-01-08] MEDS ORDERED: SODIUM CHLORIDE 0.9% 500ML 500 ML ONE (22:43)
[2020-01-08] MEDS ORDERED: SODIUM CHLORIDE 0.9% 500ML 500 ML IV ONE (22:45)
[2020-01-08] MEDS ORDERED: SODIUM CHLORIDE 0.9% 1000ML 500 ML IV ONE (23:30)
--- NOTE | 2020-01-08 23:33 | Diagnostic Imaging Report ---
EXAMINATION: CHEST SINGLE (PORTABLE) INDICATION: ^FEVER ^[id number] ^2300 COMPARISON: None FINDINGS: AP view TUBES and LINES: None. LUNGS: Lungs are well inflated. Minimal left basilar haziness. PLEURA: No pneumothorax. Suspected trace left pleural effusion. HEART AND MEDIASTINUM: The cardiomediastinal silhouette is unremarkable. BONES AND SOFT TISSUES: No acute osseous lesion. Soft tissues are unremarkable. UPPER ABDOMEN: No free air under the diaphragm. IMPRESSION: Minimal left basilar haziness, representing subsegmental atelectasis versus developing pneumonia in the appropriate clinical context. There is also suspected trace left pleural effusion. Signed by: Dr. Ronald Friedman MD on 01/08/2020 11:29 PM
--- NOTE | 2020-01-08 23:44 | NUR ---
no urine output noted to leg bag since arrival. informed. ordered to bladder scan and gently irrigate catheter if urine noted. 58cc urine noted on bladder scan. morton catheter gently irrigated c sterile water. multiple small clots aspirated. morton reconnected to leg bag, blood tinged urine not draining to bag. informed.
[2020-01-09] VITALS (8 sets, daily range): BP systolic 101–112; BP diastolic 57–69
[2020-01-09 00:01] LABS: BACTERIA,URINE MODERATE /HPF; BILIRUBIN,URINE MODERATE (NEGATIVE); CLARITY,URINE CLOUDY (CLEAR); COLOR,URINE RED (YELLOW); EPITHELIAL CELLS,URINE FEW /LPF; KETONES,URINE TRACE (NEGATIVE); LEUKOCYTE ESTERASE ,URINE LARGE (NEGATIVE); NITRITE,URINE POSITIVE (NEGATIVE); PROTEIN,URINE DIPSTICK >=300 (NEGATIVE); RBC,URINE >50 /HPF (0-5); URINE UROBILINOGEN 0.2 mg/dL (0.2 - 1)
[2020-01-09] MEDS ORDERED: CEFTRIAXONE SOD 1 GM/NS 50 ML 50 ML IV ONE (00:15)
--- OUTSIDE RECORDS SUMMARY | 2020-01-09 00:34 | XMS REPORT | Continuity of Care Document ---
Author Author [facility] t Organization [facility] Address [address] [place] [address] Phone Unavailable Care Team Providers Care E Commerce Merchant Name Role Phone NONSTAFF PCP Unavailable [facility] Beckford Attphys Unavailable Catherine TESFAYE Attphys Unavailable Payers Payer Name Policy Type Policy Number Effective Date Expiration Date Mahamed lopez [employer] [id number] 2018 00:00:00 [facility] [employer] NA [facility] Problems Condition Name Condition Details Condition Category Status Onset Date Resolution Date Last Treatment Date Treating Clinician Comments Source Urinary retention due to benign prostatic hyperplasia Problem Ac tive [facility] Obstruction of Roberson catheter Problem Active [facility] Urinary catheter change required Problem Active [facility] Pelvic mass in male Problem Active [facility] Pelvic lymphadenopathy Problem Active [facility] Occlusion of right ureter Problem Active [facility] Allergies, Adverse Reactions, Alerts Allergy Name Allergy Type Status Severity Reaction(s) Onset Date Inacti ve Date Treating Clinician Comments Source No Known Allergies DA Active U 2019-09-14 00:00:00 [facility] No Known Allergies DA Active U 2019-07-23 00:00:00 [facility] Social History Social Habit Start Date Stop Date Quantity Comments Source Sex Assigned At 1950 00:00:00 1950 00:00:00 Male [facility] Medications Ordered Medication Name Filled Medication Name Start Date Stop Da te Current Medication? Ordering Clinician Indication Dosage Frequency Signature (SIG) Comments Components Source Ciprofloxacin Hcl (Cipro) 500 Mg TABLET Ciprofloxacin Hcl (C ipro) 500 Mg TABLET 2019-12-23 15:17:00 Yes 500 Every 12 Hours [facility] Acetaminophen Acetaminophen 2019-12-22 20:14:00 Yes 650 Every 6 Hours as needed for Mild Pain (1-3) Or Fever>100.8 [facility] Tamsulosin Hcl (Flomax*) 0.4 Mg CAP Tamsulosin Hcl (Flomax*) 0.4 Mg C AP Yes .4 Twice A Day At 9:00AM And 9:00PM [facility] Vital Signs Vital Name Observation Time Observation Value Comments Source Body Temperature 2019-12-23 12:00:00 98.6 [degF] [facility] Weight 2019-12-22 06:01:00 146.50 [lb_av] [facility] BMI (Body Mass Index) 2019-12-22 06:01:00 23.6 kg/m2 [facility] Body Temperature 2019-09-30 01:59:00 97.2 [degF] [facility] Weight 2019-09-29 23:38:00 165 [lb_av] [facility] BMI (Body Mass Index) 2019-09-29 23:38:00 26.6 kg/m2 [facility] Weight 2019-08-25 12:47:00 175 [lb_av] [facility] BMI (Body Mass Index) 2019-08-25 12:47:00 29.1 kg/m2 [facility] Procedures Procedure Date / Time Performed Performing Clinician Obdulia olmos CT of abdomen and pelvis without contrast 2019-12-20 00:00:00 [facility] INSERT TEMP BLADDER CATH 2019-09-30 00:00:00 [facility] INSERT TEMP BLADDER CATH 2019-08-23 00:00:00 [facility] Plan of Care Planned Activity Planned Date Details Comments Source Instructions Roberson Catheter Care [facility] Instructions Pelvic Pain [facility] Instructions Urinary Retention [facility] Instructions Urinary Tract Infection - Men [facility] Encounters Start Date/Time End Date/Time En[facility] ID Source 2019-12-20 13:55:00 2019-12-23 16:58:00 Discharged Inpatient 1 BOB TESFAYE [facility] [id number] [facility] 2019-09-30 00:00:00 2019-09-30 01:59:00 Departed Emergency Room [facility] [id number] [facility] 2019-08-25 12:43:00 2019-08-25 13:08:00 Departed Emergency Room [facility] [id number] [facility] 2019-08-23 19:11:00 2019-08-23 20:51:00 Departed Emergency Room [facility] [id number] [facility] Results Test Description Test Time Test Comments Results Result Comments Source CHEST SINGLE (PORTABLE) 2020-01-08 23:28:00 [facility] [address] [address] Patient Name: OMAR BRUMFIELD MR #: [id number] : 1950 Age/Sex: 69/M Req #: [id number] Adm Physician: Ordered by: Carlota Beckford MD Report #: [id number] Location: ER Room/Bed: Procedure: [id number] DX/CHEST SINGLE (PORTABLE) Exam Date: 01/08/20 Exam Time: 2299 REPORT STATUS: Signed EXAMINATION: CHEST SINGLE (PORTABLE) INDICATION: FEVER [id number] COMPARISON: None FINDINGS: AP view TUBES and LINES: None. LUNGS: Lungs are well inflated. Minimal left basilar haziness. PLEURA : No pneumothorax. Suspected trace left pleural effusion. HEART AND MEDIASTINUM: The cardiomediastinal silhouette is unremarkable. BONES AND SOFT TISSUES: No acute osseous lesion. Soft tissues are unremarkable. UPPER ABDOMEN: No free air under the diaphragm. IMPRESSION: Minimal left basilar haziness, representing subsegmental atelectasis versus developing pneumonia in the appropriate clinical context. There is also suspected trace left pleural effusion. Signed by: Dr. Ronald Springer MD on 01/08/2020 11:29 PM Dictated By: RONALD SPRINGER MD 28 Transcribed By: RODERICK on 01/08/202328 COPY TO: CARLOTA BECKFORD MD Blood leukocytes automated count (number/volume) 2019-12-23 06:20:00 Test Item White Blood Count (test code = 6690-2) 10.19 4.8-10.8 [facility] erythrocytes automated count (number/volume)2019-12-23 06:20:00* Test Item Value Reference Range Interpretation Comments Red Blood Count (test code = 789-8) 4.27 4.3-5.7 [facility] hemoglobin measurement (moles/volume)2019-12-23 06:20:00* Test Item Value Reference Range Interpretation Comments Hemoglobin (test code = 05913-0) 12.2 14.0-18.0 [facility] CenterAutomated blood hematocrit (volume fraction)2019-12-23 06:20:00* Test Item Value Reference Range Interpretation Comments Hematocrit (test code = 4544-3) 36.0 38.2-49.6 [facility] CenterAutomated erythrocyte mean corpuscular yrynyj1397-90-57 06:20:00* Test Item Value Reference Range Interpretation Comments Mean Corpuscular Volume (test code = 787-2) 84.3 81-99 [facility] CenterAutomated erythrocyte mean corpuscular hemoglobin (mass per erythrocyte)2019-12-23 06:20:00* Test Item Value Reference Range Interpretation Comments Mean Corpuscular Hemoglobin (test code = 785-6) 28.6 28-32 [facility] CenterAutomated erythrocyte mean corpuscular hemoglobin concentration measurement (mass/volume)2019-12-23 06:20:00* Test Item Value Reference Range Interpretation Comments Mean Corpuscular Hemoglobin Concent (test code = 786-4) 33.9 31-35 [facility] CenterRDW KdnEa-Hll0240-73-26 06:20:00* Test Item Value Reference Range Interpretation Comments Red Cell Distribution Width (test code = 99840-1) 13.2 11.7 -14.4 [facility] CenterAutomated blood platelet count (count/volume)2019-12-23 06:20:00* Test Item Value Reference Range Interpretation Comments Platelet Count (test code = 777-3) 283 140-360 [facility] CenterAutomated blood segmented neutrophil count as percentage of total udbyiysezd9066-90-88 06:20:00* Test Item Value Reference Range Interpretation Comments Neutrophils (%) (Auto) (test code = 63672-6) 81.8 38.7-80.0 [facility] CenterAutomated blood lymphocyte count as percentage ot total ofhfrdysyf0315-03-71 06:20:00* Test Item Value Reference Range Interpretation Comments Lymphocytes (%) (Auto) (test code = 736-9) 10.9 18.0-39.1 [facility] CenterAutomated blood monocyte count as percentage of total smjrdbfzbe8441-33-14 06:20:00* Test Item Value Reference Range Interpretation Comments Monocytes (%) (Auto) (test code = 5905-5) 6.4 4.4-11.3 [facility] CenterAutomated blood eosinophil count as percentage of total dbjvllfczt1741-20-13 06:20:00* Test Item Value Reference Range Interpretation Comments Eosinophils (%) (Auto) (test code = 713-8) 0.2 0.0-6.0 [facility] CenterAutomated blood basophil count as percentage of total umqabiehvk1327-73-82 06:20:00* Test Item Value Reference Range Interpretation Comments Basophils (%) (Auto) (test code = 706-2) 0.1 0.0-1.0 [facility] CenterFluoroscopic procedure less than one hour bjkrgvqc2126-86-19 06:20:00* Test Item Value Reference Range Interpretation Comments IM GRANULOCYTES % (test code = IM GRANULOCYTES %) 0.6 0.0- 1.0 [facility] CenterAutomated blood neutrophil count 2019-12-23 06:20:00* Test Item Value Reference Range Interpretation Comments Neutrophils # (Auto) (test code = 751-8) 8.3 2.1-6.9 [facility] lymphocytes count (number/volume) 2019-12-23 06:20:00* Test Item Value Reference Range Interpretation Comments Lymphocytes # (Auto) (test code = 97504-8) 1.1 1.0-3.2 [facility] CenterBlood monocytes automated count (number/volume)2019-12-23 06:20:00* Test Item Value Reference Range Interpretation Comments Monocytes # (Auto) (test code = 742-7) 0.7 0.2-0.8 [facility] CenterAutomated blood eosinophil count 2019-12-23 06:20:00* Test Item Value Reference Range Interpretation Comments Eosinophils # (Auto) (test code = 711-2) 0.0 0.0-0.4 [facility] CenterAutomated blood basophil count (count/volume)2019-12-23 06:20:00* Test Item Value Reference Range Interpretation Comments Basophils # (Auto) (test code = 704-7) 0.0 0.0-0.1 [facility] CenterFluoroscopic procedure less than one hour qfxcsfzj5273-09-34 06:20:00* Test Item Value Reference Range Interpretation Comments Absolute Immature Granulocyte (auto (lyndsey t code = Absolute Immature Granulocyte (auto) 0.06 0-0.1 [facility] sodium measurement (moles/volume)2019-12-23 06:20:00* Test Item Value Reference Range Interpretation Comments Sodium Level (test code = 2951-2) 130 136-145 [facility] plasma potassium measurement (moles/volume)2019-12-23 06:20:00* Test Item Value Reference Range Interpretation Comments Potassium Level (test code = 2823-3) 4.1 3.5-5.1 [facility] plasma chloride measurement (moles/volume)2019-12-23 06:20:00* Test Item Value Reference Range Interpretation Comments Chloride Level (test code = 2075-0) 98 98-107 [facility] or plasma carbon dioxide, total measurement (moles/volume)2019-12-23 06:20:00* Test Item Value Reference Range Interpretation Comments Carbon Dioxide Level (test code = 2028-9) 24 22- [facility] or plasma anion gmb4579-31-06 06:20:00* Test Item Value Reference Range Interpretation Comments Anion Gap (test code = 63624-3) 12.1 8-16 [facility] plasma urea nitrogen measurement (mass/volume)2019-12-23 06:20:00* Test Item Value Reference Range Interpretation Comments Blood Urea Nitrogen (test code = 3094-0) 17 7-26 [facility] plasma creatinine measurement (mass/volume)2019-12-23 06:20:00* Test Item Value Reference Range Interpretation Comments Creatinine (test code = 2160-0) 0.76 0.72-1.25 [facility] or plasma urea nitrogen/creatinine mass laxbr7333-67-24 06:20:00* Test Item Value Reference Range Interpretation Comments BUN/Creatinine Ratio (test code = 3097-3) 22 6-25 [facility] CenterEstimated glomerular filtration rate (GFR) rikgvstdfzohv4591-34-17 06:20:00* Test Item Value Reference Range Interpretation Comments Estimat Glomerular Filtration Rate (test code = 072085992) > 60 >60 Ranges were taken from the National Kidney Disease Education Program and the [place] ional Kidney Foundation literature.Reference ranges:60 or greater: Zervpa21-80 ( for 3 consecutive months): Chronic kidney disease 15 or less: Kidney failureCitizens Medical CenterGlucose wdjptyrrfra3797-55-30 06:20:00* Test Item Value Reference Range Interpretation Comments Glucose Level (test code = EHJ5129) 102 74-118 [facility] or plasma calcium measurement (mass/volume)2019-12-23 06:20:00* Test Item Value Reference Range Interpretation Comments Calcium Level (test code = 05716-2) 8.2 8.4-10.2 [facility] CenterPhosphorus bqagndmoiaq8596-59-33 06:20:00 * Test Item Value Reference Range Interpretation Comments Phosphorus Level (test code = GNZ8323) 3.5 2.3-4.7 [facility] plasma magnesium measurement (mass/volume)2019-12-23 06:20:00* Test Item Value Reference Range Interpretation Comments Magnesium Level (test code = 51015-7) 2.0 1.3-2.1 [facility] plasma total bilirubin measurement (mass/volume)2019-12-22 05:31:00* Test Item Value Reference Range Interpretation Comments Total Bilirubin (test code = 1975-2) 0.5 0.2-1.2 [facility] CenterFluoroscopic procedure less than one hour typpclmp6870-02-90 05:31:00* Test Item Value Reference Range Interpretation Comments Aspartate Amino Transf (AST/SGOT) (test code = Aspartate Amino Transf (AST/SGOT)) 14 5-34 [facility] or plasma alanine aminotransferase measurement (enzymatic activity/volume)2019-12-22 05:31:00* Test Item Value Reference Range Interpretation Comments Alanine Aminotransferase (ALT/SGPT) (test code = 1742-6) 8 0-55 [facility] or plasma protein measurement (mass/volume)2019-12-22 05:31:00* Test Item Value Reference Range Interpretation Comments Total Protein (test code = 2885-2) 6.1 6.5-8.1 [facility] plasma albumin measurement (mass/volume)2019-12-22 05:31:00* Test Item Value Reference Range Interpretation Comments Albumin (test code = 1751-7) 3.6 3.5-5.0 [facility] CenterPlasma globulin measurement (mass/volume) 2019-12-22 05:31:00* Test Item Value Reference Range Interpretation Comments Globulin (test code = 78942-9) 2.5 2.3-3.5 [facility] plasma albumin/globulin mass vctzq2739-68-49 05:31:00* Test Item Value Reference Range Interpretation Comments Albumin/Globulin Ratio (test code = 1759-0) 1.4 0.8-2.0 [facility] plasma alkaline phosphatase measurement (enzymatic activity/volume)2019-12-22 05:31:00* Test Item Value Reference Range Interpretation Comments Alkaline Phosphatase (test code = 6768-6) 47 40-150 [facility] CenterFluoroscopic procedure less than one hour hasyrzti3875-26-19 14:25:00* Test Item Value Reference Range Interpretation Comments Coronavirus (PCR) (test code = Coronavirus (PCR)) NOT DETECTED NOTD ETECTED SARS-CoV-2 PCRHologic Aptima SARS-CoV-2 assay is a nucleic amplification test in tended for the qualitative detection of RNA from SARS-CoV-2 from nasopharyngeal (DISTRICT SCOUT EXECUTIVE) specimens. It is used under Emergency Use Authorization (EUA) by FDA.A posi tive result is indicative of the presence of SARS-CoV-2 RNA. Clinical correlatio n with patient history and other diagnostic information is necessary to determin e patient infection status.A negative (Not Detected) result does not preclude SA RS-CoV-2 infection. Clinical Correlation with patient history and other diagnost ic information should be used in patient management decisions.Invalid: Unable to generate a valid result on this specimen. Please submit a new specimen for repr at testing oc clinically indicated.Tesing performed by:[facility] Laboratory Services[address] [place] [address] [id number], Yosi lynne MD, PhDCitizens Medical CenterUrine color determination 2019-12-20 13:25:00* Test Item Value Reference Range Interpretation Comments Urine Color (test code = 5778-6) YELLOW YELLOW [facility] CenterUrine uttmqxf2713-48-89 13:25:00* Test Item Value Reference Range Interpretation Comments Urine Clarity (test code = 56973-5) SL CLOUDY CLEAR [facility] Hospitalpecific gravity of Urine by Test strip 2019-12-20 13:25:00* Test Item Value Reference Range Interpretation Comments Urine Specific Ashby (test code = 5811-5) 1.020 1.010-1.02 5 [facility] CenterUrine pH measurement by automated test uohwr6750-16-59 13:25:00* Test Item Value Reference Range Interpretation Comments Urine pH (test code = 10661-5) 8.5 5-7 [facility] CenterUrine leukocyte esterase detection by tblaipss9563-74-99 13:25:00* Test Item Value Reference Range Interpretation Comments Urine Leukocyte Esterase (test code = 5799-2) MODERATE NEGATIVE [facility] CenterUrine nitrite rqvnztfhj4703-33-60 13:25:00* Test Item Value Reference Range Interpretation Comments Urine Nitrite (test code = 31568-9) POSITIVE NEGATIVE [facility] CenterUrine protein measurement by test strip (mass/volume)2019-12-20 13:25:00* Test Item Value Reference Range Interpretation Comments Urine Protein (test code = 5804-0) 1+ NEGATIVE [facility] CenterUrine glucose szqknugfr8293-96-31 13:25:00* Test Item Value Reference Range Interpretation Comments Urine Glucose (UA) (test code = 2349-9) NEGATIVE NEGATIVE [facility] CenterUrine ketones detection by automated test pdrhu2502-05-17 13:25:00* Test Item Value Reference Range Interpretation Comments Urine Ketones (test code = 67319-1) NEGATIVE NEGATIVE [facility] CenterUrine urobilinogen measurement by test strip (mass/volume)2019-12-20 13:25:00* Test Item Value Reference Range Interpretation Comments Urine Urobilinogen (test code = 77311-9) 0.2 0.2-1 [facility] CenterUrine total bilirubin measurement (mass/volume)2019-12-20 13:25:00* Test Item Value Reference Range Interpretation Comments Urine Bilirubin (test code = 1978-6) NEGATIVE NEGATIVE [facility] CenterUrine erythrocytes xfujqvpek3098-99-52 13:25:00* Test Item Value Reference Range Interpretation Comments Urine Blood (test code = 63639-7) SMALL NEGATIVE [facility] CenterAutomated urine sediment leukocyte count by microscopy (number/high power field)2019-12-20 13:25:00* Test Item Value Reference Range Interpretation Comments Urine WBC (test code = 5821-4) 6-10 0-5 [facility] CenterErythrocytes detection in urine sediment by light yfhofkxfxk8614-30-05 13:25:00* Test Item Value Reference Range Interpretation Comments Urine RBC (test code = 37375-2) 0-5 0-5 [facility] CenterBacteria detection in urine sediment by light ntoombdckk3801-24-73 13:25:00* Test Item Value Reference Range Interpretation Comments Urine Bacteria (test code = 54821-5) MANY NONE [facility] CenterEpithelial cells detection in urine sediment by light ixtmghxtes0446-42-05 13:25:00* Test Item Value Reference Range Interpretation Comments Urine Epithelial Cells (test code = 31886-1) FEW NONE [facility] CenterTriple phosphate crystals detection in urine sediment by light lgfeiejyhl6077-96-90 13:25:00* Test Item Value Reference Range Interpretation Comments Urine Triple Phosphate Crystals (test code = 5814-9) MODERATE F EW [facility] CenterAmorphous sediment detection in urine sediment by light tpnkdadaeo5928-05-84 13:25:00* Test Item Value Reference Range Interpretation Comments Urine Amorphous Sediment (test code = 8246-1) MODERATE FEW [facility] CenterBacterial urine qwtkvsh8544-46-26 13:25:00* Test Item Value Reference Range Interpretation Comments Urine Culture (test code = 630-4) PSEUDOMONAS AERUGINOSA [facility] CenterCT ABDOMEN/PELVIS LO4030-53-14 12:41:00 [facility] [address] [address] Patient Name: OMAR BRUMFIELD MR #: [id number] : 1950 Age/Sex: 69/M Req #: [id number] Adm Physician: Ordered by: BOB TESFAYE MD rt #: [id number] Location: ER Room/Be d: Procedure: [id number] CT/CT ABDOMEN/P DARBY WO Exam Date: 12/20/19 Exam Time: 1215 REPORT STATUS: Signed EXAM: CT Abdomen and Pelvis WITHOUT intravenous contrast INDICATION: Abdominal pain C OMPARISON: None. TECHNIQUE: Abdomen and pelvis were scanned utilizing a CardioPhotonicsdetector helical scanner from the lung base to the pubic symphysis without a dministration of IV contrast. Coronal and sagittal reformations were obtained. IV CONTRAST: None ORAL CONTRAST: Water COMPLICATI ONS: None RADIATION DOSE: Total DLP: 267 mGy*cm Dose modulation, it erative reconstruction, and/or weight based adjustment of the mA/kV was utiliz ed to reduce the radiation dose to as low as reasonably achievable. FIND INGS: LOWER THORAX: Normal. HEPATOBILIARY: Several cysts in the liver genesis sure up to 2.7 cm. Unremarkable gallbladder. SPLEEN: No splenomegaly. PANCREAS: No focal masses or ductal dilatation. ADRENALS: No adrenal nodu les. KIDNEYS/URETERS: Moderate right hydroureteronephrosis. No obstructing sto ne identified. No left hydronephrosis or hydroureter. No solid renal mass lesi on. Posterior right lower pole renal cyst. PELVIC ORGANS/BLADDER: 6.4 x 8.4 x 6.7 cm centrally necrotic mass centered about the prostate and extending int o the posterior bladder. Extensive bulky right greater than left pelvic sidewa ll lymphadenopathy and right greater than left iliac chain lymphadenopathy. Bu lky retroperitoneal lymph nodes measure up to 3.1 cm. PERITONEUM / RETROP ERITONEUM: No free air or fluid. VESSELS: Unremarkable. GI TRACT: No b owel thickening. No bowel obstruction. Normal appendix. BONES AND SOFT TISS UES: No acute osseous injury. No suspicious lytic or blastic lesions. IMP RESSION: 6.4 x 8.4 x 6.7 cm centrally necrotic pelvic mass centered about the prostate extends into the posterior bladder and is concerning for malignancy. More definitive characterization is limited bilaterally of intravenous contra st material. Extensive right greater than left iliac and pelvic sidewall metastatic lymphadenopathy and bulky retroperitoneal lymphadenopathy encases the right distal ureter resulting in moderate right hydroureteronephrosis. The above findings were discussed with Dr. Tesfaye on 12/20/2019 12:41 PM, who responded indicating that the communication was understood. Signed by: Jose Edwards MD on 12/20/2019 12:54 PM Dictated By: MAGDALENO EDWARDS MD Electronic ally Signed By: MAGDALENO EDWARDS MD on 12/20/19 1254 Transcribed By: RODERICK on 12/19 1254 COPY TO: BOB TESFAYE MD Prothrombin time (PT) in platelet poor plasma by coagulation jbcap4984-35-61 11:54:00* Test Item Value Reference Range Interpretation Comments Prothrombin Time (test code = 5902-2) 13.5 11.9-14.5 [facility] CenterINR in Platelet poor plasma by Coagulation thqwq9856-75-20 11:54:00* Test Item Value Reference Range Interpretation Comments Prothromb Time International Ratio (test code = 6301-6) 0.98 Oral Anticoagulant Therapy INR Values:1. Low Intensity Therapy 1.5 - 2.02 . Moderate Intensity Therapy 2.0 - 3.03. High Intensity Therapy(1) 2.5 - 3. 54. High Intensity Therapy(2) 3.0 - 4.05. Panic Value INR > 5.0 [facility] CenterActivated partial thromboplastin time (aPTT) in platelet poor plasma by coagulation rbrjm3602-92-82 11:54:00* Test Item Value Reference Range Interpretation Comments Activated Partial Thromboplast Time (test code = 36271-5) 21.7 23.8-35.5 [facility] or plasma creatine kinase measurement (enzymatic activity/volume)2019-12-20 11:54:00* Test Item Value Reference Range Interpretation Comments Creatine Kinase (test code = 2157-6) 43 30-200 [facility]erum or plasma creatine kinase MB measurement (mass/volume)2019-12-20 11:54:00* Test Item Value Reference Range Interpretation Comments Creatine Kinase MB (test code = 05189-9) 0.70 0-5.0 [facility] CenterTroponin I measurement by highly sensitive enzyme qrzongdwysg5476-16-41 11:54:00* Test Item Value Reference Range Interpretation Comments Troponin I (test code = 47052-3) 0.002 0-0.300 [facility] CenterPERITONEUM,KJMWZO9286-84-27 12:02:00 RUN DATE: 10/11/19 [employer] PAGE 1 RUN TIME: 1202 Specimen Inqui ry RUN USER: INTERFACE PATIENT: OMAR BRUMFIELD ACCT #: [id number] LOC: [facility] U #: [id number] AGE/SX: 69/M ROOM: RE09/20/19REG DR: Mitch Garza MD : 50 BED: DIS: STATUS[facility] TLOC: SPEC #: [id number] RECD: 09/20/19 STATUS: ANA BERRIOS #: [id number] NOHELIA: 09/20/19-1007 [facility] [address]: Mitch Garza MD ENTERED: 09/20/19 SP TYPE: BX PERITON OTHR DR: Eric Hilliard MD TUMOR REGISTRYORDERED: GROSS COPIES TO: Eric Maloney MD [address] [place] [address] TUMOR REGISTRY Mitch Garza MD [address] [place], [place] [id number] MARKERS: INTRADEPART MENTAL CONSULT, MALIGNANCY PROCEDURES: GROSS (09/28/19-143) TISSUES: RETROPERITONEUM, NOS - BX 3SLIDES CLINICAL HISTORY COLLECTION DATE: CT GUIDED RETROPERITONEAL LYMPH NODE BIOPSY, PROSTATE CARCINOMA RAÚL PECTED COMMENT The sections demonstrate lymphoid tissue with a mal ignant tumor composed of sheets of malignant tumor cells with a high nuclear to cytoplasmic ratio and frequent mitotic figures. Similar tumor cells are seen on the touch prep slides. Immunostains were prepared on the block at [facility] and one immunostain was prepared on block at [facility]. The stains were interpreted at [facility]. The controls stain appropriately. The tumor is posi tive for pancytokeratin, CK20 (dot-like pattern), CD-56, synaptophysin, chromog ranin, and TTF-1 and negative for PSA, and PSAP, CK7, and LCA. 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 The immunostains are not specific between these. In the OP report the site of the biopsy is noted to be right inguinal lymph node. Cli nical correlation is recommended. CONTINUE D ON NEXT PAGE RUN DATE: 10/11/19 [facility] PAGE 2 RUN TIME: 1202 Specimen Inquiry RUN USER: INTERFACE SPEC #: [id number] MEETA ENT: OMAR BRUMFIELD #[id number] (Continued) COMMENT (Continued) Intradepartmental consultation: RR B. 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 It consists of zimmerman core biopsies measuring 0.8 cm in length by less than 0.1 cm in diameter. GROSS PERFORMED AT [facility] [address] [place] [phone])[phone] MICROSCOPIC All of the stains, including any controls performed, stain appropriately. MICROSCOPIC PERFORMED AT [facility] [address] [place] [address] (P)[phone] PERFORMING SITE Diagnosis performed at: [facility] [address] [facility] [place] [address] CONTINUED ON NEXT PAGE RUN DATE: 10/11/19 [facility] PAGE 3 RUN TIME: 1202 Specimen Inquiry R UN USER: INTERFACE --- ---------SPEC #: [id number] PATIENT: OMAR BRUMFIELD #[id number] (Continued) Signed SIGNATURE ON FILE Andie Andres MD 10/11/19 1202 END OF REPORT - CT GUID NDL [id number] 11:59:00 Name: OMAR BRUMFIELD [facility] : 1950 Age/S: 69 / M [address] [facility] Unit #: [id number] Loc: [place] [address] Phys: Mitch Garza MD Acct: [id number] Dis Date: [facility] PHONE #: [phone] Exam Date: 09/20/2019 1040 FAX #: [phone] Reason: PELVIC LYMPHNODE BX EXAMS: CPT CODE: [id number] [facility] [id number] REASON FOR EXAM: Prostate cancer with right inguinal adenopathy. PROCEDURE: CT-guided core biopsy of right inguinal adenopathy with IV conscious sedation Location:[facility] Oaij-wn-dtfn procedure time is approximately: 45 minutes FINDINGS: After informed consent was obtained, the patient was brought to [place] and placed supine on the table. All elements of maximal sterile barrier technique were followed. Prior to the biopsy, a xial images of the pelvis were obtained without intravenous contrast. Images of the CT were reviewed and the right inguinal adenopathy was lo calized. A safe pathway was found between the subcutaneous entry site and the right inguinal adenopathy. The access site was prepped and draped in the usual sterile fashion. A guiding needle was advanced into right inguin al adenopathy. Multiple core biopsies were then performed using a 18-gauge biopsy gun. Samples were submitted for cytology . The needle was removed and hemostasis obtained. MEDICATIONS: 1mg versed 25mcg fentanyl COMPLICATIONS: No immediate Blood loss: Less than 5 mL Fluoroscopic dose:512 mGy IMPRESSION: Technically successful CT-guided biopsy of right inguinal adenopathy. E lectronically Signed by Nicole Soto on 09/20/2019 at 1159 Reported and signed by: Joey Soto M.D. CC: Eric Maloney MD Technologist:Ashu Hadley RT(R) CTDI: DLP: Trnscb Date/Time: 09/20/2019 (9285) [email or web address] Orig Print D/T: S: 09/20/2019 (7265) PAGE 1 Si gned Report Novel Coronavirus 2019 Inhouse 2019-09-17 02:36:00* Test Item Value Reference Range Interpretation Comments Novel Coronavirus 2018 Inhouse (test code = COVNONPUI) Negative Negative Testing Criteria: Preprocedure ScreeningComments: 09/20/19Novel Coronavirus 2019 [id number] 02:35:00* Test Item Value Reference Range Interpretation Comments Novel Coronavirus 2018 Inhouse (test code = COVNONPUI) Negative Negative Testing Criteria: Preprocedure ScreeningComments: 09/20/19PROTHROMBIN TIME 2019-09-14 17:07:00* Test Item Value Reference Range Interpretation Comments PROTHROMBIN TIME PATIENT (test code = PTP) 11.4 seconds 9.0-14.0 N INTERNATIONAL NORMAL RATIO (test code = INR) 1.0 0.8-1.2 N The therapeutic range for oral anticoagulant therapy formost indications is an international normalized ratio (INR)of between 2.0 and 3.0. The recommended therapeutic INRrange for various clinical situations is listed below: Clinical Situation INR range Pulmonary e mbolism treatment (2.0-3.0)Venous thrombosis treatmentVenous thrombosis prophylaxis (high risk surgery)Prevention of systemic embolism from: Acute myocardial infarction Valvular heart disease Atrial fibrillation Mechanical prosthetic heart valves (2.5-3.5) IS PATIENT ON ANTICOAGULANTS? NTHROMBOPLASTIN TIME [id number] 17:07:00* Test Item Value Reference Range Interpretation Comments THROMBOPLASTIN TIME PARTIAL (test code = PTT) 27.7 seconds 23.0-37. 0 N IS PATIENT ON ANTICOAGULANTS? NBacterial urine [id number] 20:03:00* Test Item Value Reference Range Interpretation Comments Urine Culture (test code = 630-4) [facility] NEGATIVE [facility] [id number] 20:03:00* Test Item Value Reference Range Interpretation Comments Urine Culture (test code = 630-4) KLEBSIELLA PNEUMONIAE [facility] [id number] 20:03:00* Test Item Value Reference Range Interpretation Comments Urine Culture (test code = 630-4) KLEBSIELLA P[facility]UMONIAE [facility] R[facility]CR CULT IF [id number] 18:48:00* Test Item Value Reference Range Interpretation Comments UA COLOR (test code = COLU) Yellow [...] URINE: VOIDEDIndication for culture: Dysuria/Frequency COMPREHENSIVE METABOLIC [id number] 18:43:00* Test Item Value Reference Range Interpretation [...] ALKP) 86 U/L 38-126 N CBC W/AUTO [id number] 18:30:00* Test Item Value Reference Range Interpretation [...] 0.01 x10 3/uL 0.0-0.1 N TROPONIN I [id number] 18:29:00* Test Item Value Reference Range Interpretation [...]
--- OUTSIDE RECORDS SUMMARY | 2020-01-09 00:35 | XMS REPORT | Continuity of Care Document ---
Author Author [facility] t Organization [facility] Address [address] [place] [address] Phone Unavailable Care Team Providers Care Consultant [employer]. Vice President [employer] (Ex ) Name Role Phone NONSTAFF PCP Unavailable [facility] Attphys Unavailable Catherine TESFAYE Attphys Unavailable Payers Payer Name Policy Type Policy Number Effective Date Expiration Date Mahamed lopez [employer] [id number] 2018 00:00:00 [facility] [employer] NA [facility] Problems Condition Name Condition Details Condition Category Status Onset Date Resolution Date Last Treatment Date Treating Clinician Comments Source Urinary retention due to benign prostatic hyperplasia Problem Ac tive [facility] Obstruction of Roberson catheter Problem Active [facility] Urinary catheter change required Problem Active [facility] Pelvic mass in male Problem Active [facility] Pelvic lymphadenopathy Problem Active [facility] Occlusion of right ureter Problem Active [facility] Allergies, Adverse Reactions, Alerts Allergy Name Allergy Type Status Severity Reaction(s) Onset Date Inacti ve Date Treating Clinician Comments Source No Known Allergies DA Active U 2019-09-14 00:00:00 [facility] No Known Allergies DA Active U 2019-07-23 00:00:00 [facility] Social History Social Habit Start Date Stop Date Quantity Comments Source Sex Assigned At 1950 00:00:00 1950 00:00:00 Male [facility] Medications Ordered Medication Name Filled Medication Name Start Date Stop Da te Current Medication? Ordering Clinician Indication Dosage Frequency Signature (SIG) Comments Components Source Ciprofloxacin Hcl (Cipro) 500 Mg TABLET Ciprofloxacin Hcl (C ipro) 500 Mg TABLET 2019-12-23 15:17:00 Yes 500 Every 12 Hours [facility] Acetaminophen Acetaminophen 2019-12-22 20:14:00 Yes 650 Every 6 Hours as needed for Mild Pain (1-3) Or Fever>100.8 [facility] Tamsulosin Hcl (Flomax*) 0.4 Mg CAP Tamsulosin Hcl (Flomax*) 0.4 Mg C AP Yes .4 Twice A Day At 9:00AM And 9:00PM [facility] Vital Signs Vital Name Observation Time Observation Value Comments Source Body Temperature 2019-12-23 12:00:00 98.6 [degF] [facility] Weight 2019-12-22 06:01:00 146.50 [lb_av] [facility] BMI (Body Mass Index) 2019-12-22 06:01:00 23.6 kg/m2 [facility] Body Temperature 2019-09-30 01:59:00 97.2 [degF] [facility] Weight 2019-09-29 23:38:00 165 [lb_av] [facility] BMI (Body Mass Index) 2019-09-29 23:38:00 26.6 kg/m2 [facility] Weight 2019-08-25 12:47:00 175 [lb_av] [facility] BMI (Body Mass Index) 2019-08-25 12:47:00 29.1 kg/m2 [facility] Procedures Procedure Date / Time Performed Performing Clinician Obdulia olmos CT of abdomen and pelvis without contrast 2019-12-20 00:00:00 [facility] INSERT TEMP BLADDER CATH 2019-09-30 00:00:00 [facility] INSERT TEMP BLADDER CATH 2019-08-23 00:00:00 [facility] Plan of Care Planned Activity Planned Date Details Comments Source Instructions Roberson Catheter Care [facility] Instructions Pelvic Pain [facility] Instructions Urinary Retention [facility] Instructions Urinary Tract Infection - Men [facility] Encounters Start Date/Time End Date/Time [facility] ID Source 2019-12-20 13:55:00 2019-12-23 16:58:00 Discharged Inpatient 1 BOB TESFAYE [facility] [id number] [facility] 2019-09-30 00:00:00 2019-09-30 01:59:00 Departed Emergency Room [facility] [id number] [facility] 2019-08-25 12:43:00 2019-08-25 13:08:00 Departed Emergency Room [facility] [id number] [facility] 2019-08-23 19:11:00 2019-08-23 20:51:00 Departed Emergency Room [facility] [id number] [facility] Results Test Description Test Time Test Comments Results Result Comments Source CHEST SINGLE (PORTABLE) 2020-01-08 23:28:00 [facility] [address] [address] Patient Name: OMAR BRUMFIELD MR #: [id number] : 1950 Age/Sex: 69/M Req #: [id number] Adm Physician: Ordered by: Carlota Beckford MD Report #: [id number] Location: ER Room/Bed: Procedure: [id number] DX/CHEST SINGLE (PORTABLE) Exam Date: 01/08/20 Exam [...] Count (test code = 6690-2) 10.19 4.8-10.8 [facility] erythrocytes automated count (number/volume)2019-12-23 06:20:00* Test Item Value Reference Range Interpretation Comments Red Blood Count (test code = 789-8) 4.27 4.3-5.7 [facility] hemoglobin measurement (moles/volume)2019-12-23 06:20:00* Test Item Value Reference Range Interpretation Comments Hemoglobin (test code = 37585-9) 12.2 14.0-18.0 [facility] blood hematocrit (volume fraction)2019-12-23 06:20:00* Test Item Value Reference Range Interpretation Comments Hematocrit (test code = 4544-3) 36.0 38.2-49.6 [facility] Marshall[facility] erythrocyte mean corpuscular qbsiec8118-63-25 06:20:00* Test Item Value Reference Range Interpretation Comments Mean Corpuscular Volume (test code = 787-2) 84.3 81-99 [facility] eryth[facility] mean corpuscular hemoglobin (mass per erythrocyte)2019-12-23 06:20:00* Test Item Value Reference Range Interpretation Comments Mean Corpuscular Hemoglobin (test code = 785-6) 28.6 28-32 [facility] Marshall[facility] erythrocyte mean corpuscular hemoglobin concentration measurement (mass/volume)2019-12-23 06:20:00* Test Item Value Reference Range Interpretation Comments Mean Corpuscular Hemoglobin Concent (test code = 786-4) 33.9 31-35 [facility] Marshall[facility]DW SfsTp-Cdl1248-79-26 06:20:00* Test Item Value Reference Range Interpretation Comments Red Cell Distribution Width (test code = 34188-9) 13.2 11.7 -14.4 [facility] Marshall[facility] blood platelet count (count/volume)2019-12-23 06:20:00* Test Item Value Reference Range Interpretation Comments Platelet Count (test code = 777-3) 283 140-360 [facility] Marshall[facility] blood segmented neutrophil count as percentage of total zsfjqrxvvu2406-82-28 06:20:00* Test Item Value Reference Range Interpretation Comments Neutrophils (%) (Auto) (test code = 48519-7) 81.8 38.7-80.0 [facility] Marshall[facility] lymphocyte count as percentage ot total mllaxuchad9450-63-14 06:20:00* Test Item Value Reference Range Interpretation Comments Lymphocytes (%) (Auto) (test code = 736-9) 10.9 18.0-39.1 [facility] Marshall[facility] blood monocyte count as percentage of total cnqjzoxobf3352-92-09 06:20:00* Test Item Value Reference Range Interpretation Comments Monocytes (%) (Auto) (test code = 5905-5) 6.4 4.4-11.3 [facility] blood eosinophil count as percentage of total zknglcqdjp0308-57-22 06:20:00* Test Item Value Reference Range Interpretation Comments Eosinophils (%) (Auto) (test code = 713-8) 0.2 0.0-6.0 [facility] blood basophil count as percentage of total qjrxklxjpe3262-51-98 06:20:00* Test Item Value Reference Range Interpretation Comments Basophils (%) (Auto) (test code = 706-2) 0.1 0.0-1.0 [facility] MarshallFluoroscopic procedure less than one hour wtedkjgk3936-31-12 06:20:00* Test Item Value Reference Range Interpretation Comments IM GRANULOCYTES % (test code = IM GRANULOCYTES %) 0.6 0.0- 1.0 [facility] Marshall[facility] blood neutrophil count 2019-12-23 06:20:00* Test Item Value Reference Range Interpretation Comments Neutrophils # (Auto) (test code = 751-8) 8.3 2.1-6.9 [facility] lymphocytes count (number/volume) 2019-12-23 06:20:00* Test Item Value Reference Range Interpretation Comments Lymphocytes # (Auto) (test code = 77315-4) 1.1 1.0-3.2 [facility] Marshall[facility] monocytes automated count (number/volume)2019-12-23 06:20:00* Test Item Value Reference Range Interpretation Comments Monocytes # (Auto) (test code = 742-7) 0.7 0.2-0.8 [facility] Marshall[facility] blood eosinophil count 2019-12-23 06:20:00* Test Item Value Reference Range Interpretation Comments Eosinophils # (Auto) (test code = 711-2) 0.0 0.0-0.4 [facility] Marshall[facility] blood basophil count (count/volume)2019-12-23 06:20:00* Test Item Value Reference Range Interpretation Comments Basophils # (Auto) (test code = 704-7) 0.0 0.0-0.1 [facility] MarshallFluoroscopic procedure less than one hour ynjaflcn6497-72-69 06:20:00* Test Item Value Reference Range Interpretation Comments Absolute Immature Granulocyte (auto (lyndsey t code = Absolute Immature Granulocyte (auto) 0.06 0-0.1 [facility] sodium measurement (moles/volume)2019-12-23 06:20:00* Test Item Value Reference Range Interpretation Comments Sodium Level (test code = 2951-2) 130 136-145 [facility] or plasma potassium measurement (moles/volume)2019-12-23 06:20:00* Test Item Value Reference Range Interpretation Comments Potassium Level (test code = 2823-3) 4.1 3.5-5.1 [facility] or plasma chloride measurement (moles/volume)2019-12-23 06:20:00* Test Item Value Reference Range Interpretation Comments Chloride Level (test code = 2075-0) 98 98-107 [facility] or plasma carbon dioxide, total measurement (moles/volume)2019-12-23 06:20:00* Test Item Value Reference Range Interpretation Comments Carbon Dioxide Level (test code = 2028-9) 24 22- [facility] or plasma anion dzj7239-72-50 06:20:00* Test Item Value Reference Range Interpretation Comments Anion Gap (test code = 44455-6) 12.1 8-16 [facility] or plasma urea nitrogen measurement (mass/volume)2019-12-23 06:20:00* Test Item Value Reference Range Interpretation Comments Blood Urea Nitrogen (test code = 3094-0) 17 7-26 [facility] or plasma creatinine measurement (mass/volume)2019-12-23 06:20:00* Test Item Value Reference Range Interpretation Comments Creatinine (test code = 2160-0) 0.76 0.72-1.25 [facility] or plasma urea nitrogen/creatinine mass gfchs6193-76-21 06:20:00* Test Item Value Reference Range Interpretation Comments BUN/Creatinine Ratio (test code = 3097-3) 22 6-25 [facility]Estimated glomerular filtration rate (GFR) wtzkmdairgkdq5139-42-84 06:20:00* Test Item Value Reference Range Interpretation Comments Estimat Glomerular Filtration Rate (test code = 522606764) > 60 >60 Ranges were taken from the National Kidney Disease Education Program and the [place] ional Kidney Foundation literature.Reference ranges:60 or greater: Zccpws03-66 ( for 3 consecutive months): Chronic kidney disease 15 or less: Kidney failureCHRISTUS [facility] – MarshallGlucose fsginfwcpmb3629-78-05 06:20:00* Test Item Value Reference Range Interpretation Comments Glucose Level (test code = IDG7363) 102 74-118 [facility]lander[facility] or plasma calcium measurement (mass/volume)2019-12-23 06:20:00* Test Item Value Reference Range Interpretation Comments Calcium Level (test code = 67113-2) 8.2 8.4-10.2 [facility] MarshallPhosphorus nqjoqgnxgjz4054-55-85 06:20:00 * Test Item Value Reference Range Interpretation Comments Phosphorus Level (test code = BGC9925) 3.5 2.3-4.7 [facility]lander[facility] or plasma magnesium measurement (mass/volume)2019-12-23 06:20:00* Test Item Value Reference Range Interpretation Comments Magnesium Level (test code = 80178-6) 2.0 1.3-2.1 [facility]lander[facility] or plasma total bilirubin measurement (mass/volume)2019-12-22 05:31:00* Test Item Value Reference Range Interpretation Comments Total Bilirubin (test code = 1975-2) 0.5 0.2-1.2 [facility] MarshallFluoroscopic procedure less than one hour mcqxklck9611-21-48 05:31:00* Test Item Value Reference Range Interpretation Comments Aspartate Amino Transf (AST/SGOT) (test code = Aspartate Amino Transf (AST/SGOT)) 14 5-34 [facility]lander[facility] or plasma alanine aminotransferase measurement (enzymatic activity/volume)2019-12-22 05:31:00* Test Item Value Reference Range Interpretation Comments Alanine Aminotransferase (ALT/SGPT) (test code = 1742-6) 8 0-55 [facility] or plasma protein measurement (mass/volume)2019-12-22 05:31:00* Test Item Value Reference Range Interpretation Comments Total Protein (test code = 2885-2) 6.1 6.5-8.1 [facility] or plasma albumin measurement (mass/volume)2019-12-22 05:31:00* Test Item Value Reference Range Interpretation Comments Albumin (test code = 1751-7) 3.6 3.5-5.0 [facility] Marshall[facility]asma globulin measurement (mass/volume) 2019-12-22 05:31:00* Test Item Value Reference Range Interpretation Comments Globulin (test code = 86030-1) 2.5 2.3-3.5 [facility]lander[facility] or plasma albumin/globulin mass dprdq8256-49-55 05:31:00* Test Item Value Reference Range Interpretation Comments Albumin/Globulin Ratio (test code = 1759-0) 1.4 0.8-2.0 [facility]lander[facility] or plasma alkaline phosphatase measurement (enzymatic activity/volume)2019-12-22 05:31:00* Test Item Value Reference Range Interpretation Comments Alkaline Phosphatase (test code = 6768-6) 47 40-150 [facility] MarshallFluoroscopic procedure less than one hour kcbaanpw9419-53-72 14:25:00* Test Item Value Reference Range Interpretation Comments Coronavirus (PCR) (test code = Coronavirus (PCR)) NOT DETECTED NOTD ETECTED SARS-CoV-2 PCRHologic Aptima SARS-CoV-2 assay is a nucleic amplification test in tended for the qualitative detection of RNA from SARS-CoV-2 from nasopharyngeal (HEALTH PSYCHOLOGIST) specimens. It is used under Emergency Use [...] repr at testing oc clinically indicated.Tesing performed by:[facility] [place] [address] [id number], Yosi lynne MD, PhDCHRI[facility] MarshallUrine color determination 2019-12-20 13:25:00* Test Item Value Reference Range Interpretation Comments Urine Color (test code = 5778-6) YELLOW YELLOW [facility] MarshallUrine ztlvpbr4425-62-69 13:25:00* Test Item Value Reference Range Interpretation Comments Urine Clarity (test code = 66415-0) SL CLOUDY CLEAR [facility] Mainlandpecific gravity of Urine by Test strip 2019-12-20 13:25:00* Test Item Value Reference Range Interpretation Comments Urine Specific [place] (test code = 5811-5) 1.020 1.010-1.02 5 [facility] Marshall[facility] pH measurement by automated test iqvos5676-95-37 13:25:00* Test Item Value Reference Range Interpretation Comments Urine pH (test code = 20576-1) 8.5 5-7 [facility] MarshallUrine leukocyte esterase detection by zwmxiaun7765-32-33 13:25:00* Test Item Value Reference Range Interpretation Comments Urine Leukocyte Esterase (test code = 5799-2) MODERATE NEGATIVE [facility] MarshallUrine nitrite ubweuntmt5261-52-08 13:25:00* Test Item Value Reference Range Interpretation Comments Urine Nitrite (test code = 71910-9) POSITIVE NEGATIVE [facility] Marshall[facility] protein measurement by test strip (mass/volume)2019-12-20 13:25:00* Test Item Value Reference Range Interpretation Comments Urine Protein (test code = 5804-0) 1+ NEGATIVE [facility] MarshallUrine glucose ryvoxicwv5594-10-64 13:25:00* Test Item Value Reference Range Interpretation Comments Urine Glucose (UA) (test code = 2349-9) NEGATIVE NEGATIVE [facility] Marshall[facility]rine ketones detection by automated test oaztd9623-13-46 13:25:00* Test Item Value Reference Range Interpretation Comments Urine Ketones (test code = 98958-0) NEGATIVE NEGATIVE [facility] MarshallUrine urobilinogen measurement by test strip (mass/volume)2019-12-20 13:25:00* Test Item Value Reference Range Interpretation Comments Urine Urobilinogen (test code = 74644-7) 0.2 0.2-1 [facility] Marshall[facility] total bilirubin measurement (mass/volume)2019-12-20 13:25:00* Test Item Value Reference Range Interpretation Comments Urine Bilirubin (test code = 1978-6) NEGATIVE NEGATIVE [facility] MarshallUrine erythrocytes hycwtcrva5414-88-24 13:25:00* Test Item Value Reference Range Interpretation Comments Urine Blood (test code = 17198-1) SMALL NEGATIVE [facility] MarshallAutomated urine sediment leukocyte count by microscopy (number/high power field)2019-12-20 13:25:00* Test Item Value Reference Range Interpretation Comments Urine WBC (test code = 5821-4) 6-10 0-5 [facility] MarshallErythrocytes detection in urine sediment by light moeuajqomp4645-92-77 13:25:00* Test Item Value Reference Range Interpretation Comments Urine RBC (test code = 55872-7) 0-5 0-5 [facility] MarshallBacteria detection in urine sediment by light taaweoggph1503-93-87 13:25:00* Test Item Value Reference Range Interpretation Comments Urine Bacteria (test code = 10659-5) MANY NONE [facility] MarshallEpithelial cells detection in urine sediment by light rjqykulwox9078-61-65 13:25:00* Test Item Value Reference Range Interpretation Comments Urine Epithelial Cells (test code = 45345-2) FEW NONE [facility] MarshallTriple phosphate crystals detection in urine sediment by light ootklagrmb8739-19-30 13:25:00* Test Item Value Reference Range Interpretation Comments Urine Triple Phosphate Crystals (test code = 5814-9) MODERATE F EW [facility] MarshallAmorphous sediment detection in urine sediment by light myxvomxwhb9166-66-64 13:25:00* Test Item Value Reference Range Interpretation Comments Urine Amorphous Sediment (test code = 8246-1) MODERATE FEW [facility] MarshallBacterial urine pkjmmnl5974-10-17 13:25:00* Test Item Value Reference Range Interpretation Comments Urine Culture (test code = 630-4) PSEUDOMONAS AERUGINOSA [facility] MarshallCT ABDOMEN/PELVIS TM0861-41-43 12:41:00 [facility] [address] [address] Patient Name: OMAR BRUMFIELD MR #: [id number] : 1950 Age/Sex: 69/M Req #: [id number] Adm Physician: Ordered by: BOB TESFAYE MD rt #: [id number] Location: ER Room/Be d: Procedure: [id number] CT/CT ABDOMEN/P DARBY WO Exam Date: 12/20/19 Exam Time: 1215 REPORT STATUS: Signed EXAM: CT Abdomen and Pelvis WITHOUT intravenous contrast INDICATION: Abdominal pain C OMPARISON: None. TECHNIQUE: Abdomen and pelvis were scanned utilizing a SocialMaticadetector helical scanner from the lung base to [...] (PT) in platelet poor plasma by coagulation rvdlc5088-45-14 11:54:00* Test Item Value Reference Range Interpretation Comments Prothrombin Time (test code = 5902-2) 13.5 11.9-14.5 [facility] MarshallINR in Platelet poor plasma by Coagulation jvpxg3798-75-31 11:54:00* Test Item Value Reference Range Interpretation Comments Prothromb Time International Ratio (test code = 6301-6) 0.98 Oral Anticoagulant Therapy INR Values:1. Low Intensity Therapy 1.5 - 2.02 . Moderate Intensity Therapy 2.0 - 3.03. High Intensity Therapy(1) 2.5 - 3. 54. High Intensity Therapy(2) 3.0 - 4.05. Panic Value INR > 5.0 [facility] MarshallActivated partial thromboplastin time (aPTT) in platelet poor plasma by coagulation dlyyd0302-56-44 11:54:00* Test Item Value Reference Range Interpretation Comments Activated Partial Thromboplast Time (test code = 36414-7) 21.7 23.8-35.5 [facility] or plasma creatine kinase measurement (enzymatic activity/volume)2019-12-20 11:54:00* Test Item Value Reference Range Interpretation Comments Creatine Kinase (test code = 2157-6) 43 30-200 [facility]lander[facility] or plasma creatine kinase MB measurement (mass/volume)2019-12-20 11:54:00* Test Item Value Reference Range Interpretation Comments Creatine Kinase MB (test code = 09444-4) 0.70 0-5.0 [facility] MarshallTroponin I measurement by highly sensitive enzyme wfvvamhmwgu9797-77-33 11:54:00* Test Item Value Reference Range Interpretation Comments Troponin I (test code = 65017-4) 0.002 0-0.300 [facility] MarshallPERITONEUM,OXXRCJ4916-27-03 12:02:00 RUN DATE: 10/11/19 [employer] PAGE 1 RUN TIME: 1202 Specimen Inqui ry RUN USER: INTERFACE PATIENT: OMAR BRUMFIELD ACCT #: [id number] LOC: ARIC U #: [id number] AGE/SX: 69/M ROOM: RE09/20/19REG DR: Mitch Garza MD : 50 BED: DIS: [place] [facility] [place]: SPEC #: [id number] RECD: 09/20/19 STATUS: ANA BERRIOS #: [id number] NOHELIA: 09/20/19-[address] [facility] [address]: Mitch Garza MD ENTERED: 09/20/19 SP TYPE: BX PERITON OTHR DR: Eric Hilliard MD TUMOR REGISTRYORDERED: GROSS COPIES TO: Eric Maloney MD [address] [place] [address] TUMOR REGISTRY Mitch Garza MD [address] [place], [place] [id number] MARKERS: INTRADEPART MENTAL CONSULT, MALIGNANCY PROCEDURES: GROSS [...] Immunostains were prepared on the block at [facility] and one immunostain was prepared on block at [facility]. The stains were interpreted at [facility]. The controls stain appropriately. The tumor is [...] D ON NEXT PAGE RUN DATE: 10/11/19 [email or web address] PAGE 2 RUN TIME: 1202 Specimen Inquiry RUN USER: INTERFACE SPEC #: [id number] MEET[facility] E[facility]: OMAR BRUMFIELD #[id number] (Continued) COMMENT (Continued) Intradepartmental consultation: RR B. 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 It consists of zimmerman core biopsies measuring 0.8 cm in length by less than 0.1 cm in diameter. GROSS PERFORMED AT [facility] [address] [place] [address] [phone])[phone] MICROSCOPIC All of the stains, including any controls performed, stain appropriately. MICROSCOPIC PERFORMED AT [facility] [address] [place] [address] (P)[phone] PERFORMING SITE Diagnosis performed at: [facility] [address] [place] [address] CONTINUED ON NEXT PAGE RUN DATE: 10/11/19 [facility] PAGE 3 RUN TIME: 1202 Specimen Inquiry R UN USER: INTERFACE --- ---------SPEC #: [id number] PATIENT: OMAR BRUMFIELD #[id number] (Continued) Signed SIGNATURE ON FILE Andie Andres MD 10/11/19 1202 END OF REPORT - CT GUID NDL [id number] 11:59:00 Name: OMAR BRUMFIELD [facility] [place] : 1950 Age/S: 69 / M [address] [facility] Unit #: [id number] Loc: [place] [address] Phys: Mitch Garza MD Acct: [id number] Dis [place]: [place] [facility] [place] #: [phone] Exam Date: 09/20/2019 1040 FAX #: [phone] Reason: PELVIC LYMPHNODE BX EXAMS: CPT CODE: [id number] [facility] [address] REASON FOR EXAM: Prostate cancer with right inguinal adenopathy. PROCEDURE: CT-guided core biopsy of right inguinal adenopathy with IV conscious sedation Location:[facility] Jrwr-lz-gere procedure time is approximately: 45 minutes FINDINGS: After informed consent was obtained, the patient was brought to [place] and placed supine on the table. All [...] Hadley RT(R) CTDI: DLP: Trnscb Date/Time: 09/20/2019 (3896) [email or web address] Orig Print D/T: S: 09/20/2019 (0546) PAGE 1 Si gned Report Novel Coronavirus 2019 Inhouse 2019-09-17 02:36:00* Test Item Value Reference Range Interpretation Comments Novel Coronavirus 2018 Inhouse (test code = COVNONPUI) Negative Negative Testing Criteria: Preprocedure ScreeningComments: 09/20/19Novel Coronavirus 2019 [id number] 02:35:00* Test Item Value Reference Range Interpretation [...] (2.5-3.5) IS PATIENT ON ANTICOAGULANTS? NTHROMBOPLASTIN TIME [id number] 17:07:00* Test Item Value Reference Range Interpretation Comments THROMBOPLASTIN TIME PARTIAL (test code = PTT) 27.7 seconds 23.0-37. 0 N IS PATIENT ON ANTICOAGULANTS? NBacterial urine [id number] 20:03:00* Test Item Value Reference Range Interpretation Comments Urine Culture (test code = 630-4) GRAM NEGATIVE [facility] [id number] 20:03:00* Test Item Value Reference Range Interpretation Comments Urine Culture (test code = 630-4) KLEBSIELLA PNEUMONIAE [facility] urine [id number] 20:03:00* Test Item Value Reference Range Interpretation Comments Urine Culture (test code = 630-4) KLEBSIELLA [facility]UMONIAE [facility] RFLX MICR CULT IF [id number] 18:48:00* Test Item Value Reference Range Interpretation [...] URINE: VOIDEDIndication for culture: Dysuria/Frequency COMPREHENSIVE METABOLIC [id number] 18:43:00* Test Item Value Reference Range Interpretation [...] ALKP) 86 U/L 38-126 N CBC W/AUTO [id number] 18:30:00* Test Item Value Reference Range Interpretation [...] 0.01 x10 3/uL 0.0-0.1 N TROPONIN I [id number] 18:29:00* Test Item Value Reference Range Interpretation [...]
--- NOTE | 2020-01-09 00:40 | NUR ---
Received pt from ER via wheelchair. Pt alert, awake, and oriented x 3. Denies any pain or discomfort. Vitals stable. Home medications verified with patient. Oriented pt to call light, bathroom, and bed controls. No need verbalized at this time.
[2020-01-09] MEDS ORDERED: ACETAMINOPHEN 325 MG TAB PO PRN (00:45)
--- NOTE | 2020-01-09 06:40 | NUR ---
RECEIVED BEDSIDE SHIFT REPORT FROM OFF GOING NURSE. PATIENT IS RESTING IN BED, NO S/S OF DISTRESS NOTED AT THIS TIME. CALL LIGHT WITHIN REACH. BED IN THE LOWEST POSITION.
[2020-01-09] MEDS ORDERED: NITROFURANTOIN100 MG PO (07:34)
[2020-01-09] MEDS ORDERED: IBUPROFEN200 MG PO (07:34)
[2020-01-09 10:34] LABS: BILIRUBIN,URINE NEGATIVE (NEGATIVE); CLARITY,URINE SL CLOUDY (CLEAR); COLOR,URINE YELLOW (YELLOW); KETONES,URINE NEGATIVE (NEGATIVE); LEUKOCYTE ESTERASE ,URINE MODERATE (NEGATIVE); NITRITE,URINE NEGATIVE (NEGATIVE); PROTEIN,URINE DIPSTICK 2+ (NEGATIVE); URINE UROBILINOGEN 0.2 mg/dL (0.2 - 1)
[2020-01-09 10:38] LABS: BACTERIA,URINE MODERATE /HPF
[2020-01-09] MEDS ORDERED: SODIUM CHLORIDE 0.9% 250ML 250 ML ONE (13:55)
[2020-01-09] MEDS: PIPERACILLIN/TAZO 2.25 GM 50 ML IV SCH ×2 (13:57→22:06)
[2020-01-09] MEDS ORDERED: IBUPROFEN 400 MG TAB PO PRN (17:30)
--- NOTE | 2020-01-09 19:03 | NUR ---
BEDSIDE SHIFT REPORT GIVEN TO ONCOMING NURSE. PATIENT IS IN STABLE CONDITION, NO ACUTE DISTRESS NOTED AT THIS TIME. CALL LIGHT WITHIN REACH. BED IN THE LOWEST POSITION.
[2020-01-10] VITALS (8 sets, daily range): BP systolic 100–128; BP diastolic 56–77
[2020-01-10] MEDS: PIPERACILLIN/TAZO 2.25 GM 50 ML IV SCH ×3 (05:17→22:13)
[2020-01-10 06:45] LABS: BASOPHILS % 0.1 % (0.0-1.0); EOSINOPHILS # (AUTO) 0.3 (0.0-0.4); EOSINOPHILS % 3.5 % (0.0-6.0); HEMATOCRIT 29.7 % (38.2-49.6); HEMOGLOBIN 9.8 g/dL (14.0-18.0); LYMPHOCYTES # (AUTO) 1.4 (1.0-3.2); LYMPHOCYTES % 18.3 % (18.0-39.1); MEAN CORPUSCULAR HEMOGLOBIN 28.2 pg (28-32); MEAN CORPUSCULAR VOLUME 85.6 fL (81-99); MONOCYTES % 12.8 % (4.4-11.3); NEUTROPHILS % 64.9 % (38.7-80.0); PLATELET COUNT 240 x10e3/uL (140-360); RED BLOOD COUNT 3.47 x10e6/uL (4.3-5.7); RED CELL DISTRIBUTION WIDTH 13.7 % (11.7-14.4)
--- NOTE | 2020-01-10 06:56 | NUR ---
Patient was discharged from PT services after the eval. Pt was found to be able to get in and out of bed and ambulate ~400 ft on his own. Addendum: 01/10/20 at 0658 by Tr Lawler PT Amended: Links added.
[2020-01-10 07:12] LABS: ANION GAP 12.5 mmol/L (8-16); BLOOD UREA NITROGEN 18 mg/dL (7-26); BUN/CREATININE RATIO 21 (6-25); CALCIUM 8.3 mg/dL (8.4-10.2); CARBON DIOXIDE 25 mmol/L (22-29); CHLORIDE 103 mmol/L (98-107); CREATININE, SERUM 0.85 mg/dL (0.72-1.25); EST GLOMERULAR FILTRATION RATE > 60 ML/MIN (60-); GLUCOSE 91 mg/dL (74-118); POTASSIUM 3.5 mmol/L (3.5-5.1); SODIUM 137 mmol/L (136-145)
--- NOTE | 2020-01-10 12:30 | NUR ---
Spoke to Dr. Ayala, states he plans to probably dc tomorrow.
--- NOTE | 2020-01-10 21:36 | NUR ---
Pt states he has not had urine output since around 1700. Scant amount of bright, red urine noted in drainage bag. Dr. Kelly notified. New orders received to discontinue 20 F catheter and reinsert a new 20 F catheter. Also, orders received to irrigate catheter once a shift and PRN.
[2020-01-10] MEDS: TRAMADOL HCL 50 MG TAB PO PRN (22:56)
[2020-01-11] VITALS (8 sets, daily range): BP systolic 126–150; BP diastolic 67–79
[2020-01-11] MEDS: PIPERACILLIN/TAZO 2.25 GM 50 ML IV SCH ×3 (05:40→21:38)
--- NOTE | 2020-01-11 07:00 | NUR ---
BEDSIDE SHIFT REPORT RECEIVED FROM THE BORDER PATROL AGENT RN. EDUCATED PT ABOUT FALL PRECAUTIONS. PT VERBALIZED UNDERSTANDING. CALL LIGHT WITH IN EASY REACH. BED IS LOW AND LOCKED. SIDE RAILS X2. ALL SAFETY MEASURES IN PLACE. PT DENIES NEEDS AT THIS TIME.
--- NOTE | 2020-01-11 10:00 | NUR ---
PT HAS HEMATURIA REPORTED THE SAME TO DR. VIGIL AT BEDSIDE.
[2020-01-11] MEDS: TRAMADOL HCL 50 MG TAB PO PRN ×2 (10:08→21:40)
--- NOTE | 2020-01-11 16:09 | Diagnostic Imaging Report ---
TECHNIQUE: Frontal view of the chest. INDICATION: ^PICC LINE PLACEMENT ^[id number] ^1500 COMPARISON: 01/08/2020 DISCUSSION: Limited evaluation due to portable technique. Lines and hardware: Right PICC is noted with tip projecting at the lower SVC. Overlying EKG leads are noted. Heart and mediastinum: Stable. Lungs and pleura: No focal airspace consolidation. No pleural effusion. No pneumothorax. Soft tissues and bones: No acute abnormality. IMPRESSION: Negative for acute intrathoracic process. Signed by: Sp Israel MD on 01/11/2020 4:06 PM
--- NOTE | 2020-01-11 17:49 | NUR ---
INFECTIOUS DISEASE CONSULT NOTE DR. LESLEY WILLAMS HPI: The patient presents with a few days of pain and burning with urination. Pt reports fever and chills as well. COVID negative, morton placed upon arrival Denies PMH, Denies Family HX, denies surgical hx. ROS: +fatigue ALL 14 POINT ROS NEG UNLESS OTHERWISE NOTED LABS: reviewed RADIOLOGY: reviewed PHYSICAL EXAM: GENERAL: awake, alert HEENT: normocephalic, atraumatic CV: s1, s2, no s3, s4 CHEST: diminished, symmetric expansion ABD: soft, non-tender, non-distended EXT: moves all, no joint swelling NEURO: no large focal neuro deficit IMPRESSION: UTI Ecoli Sepsis present on admission PLAN: Will set up for IV ABT PICC line Will get CT ABD Pelvis If CT is negative, okay to discharge with 2 weeks of IV ABT Simran Hutson MSN, CONTENT SPECIALIST, AGACNP-BC Lesley Willams M.D.
--- NOTE | 2020-01-11 17:54 | NUR ---
PAGED RADIOLOGY REGARDING STAT CT
--- NOTE | 2020-01-11 19:00 | NUR ---
BEDSIDE SHIFT REPORT GIVEN TO THE FOOD AND DRUG INSPECTOR RN. PT DENIED FURTHER NEEDS.
--- NOTE | 2020-01-11 19:29 | Diagnostic Imaging Report ---
EXAM: CT Abdomen and Pelvis WITH contrast INDICATION: ^TO R/O PYLONEPHRITIS ^[id number] ^1815 ^Y COMPARISON: CT abdomen/pelvis without contrast 12/20/2019 TECHNIQUE: Abdomen and pelvis were scanned utilizing a multidetector helical scanner from the lung base to the pubic symphysis after administration of IV contrast. Coronal and sagittal reformations were obtained. Routine protocol was performed. Scan was performed when during portal venous phase. IV CONTRAST: 100 mL of Isovue 370 ORAL CONTRAST: None COMPLICATIONS: None RADIATION DOSE: Total DLP: 302.08 mGy*cm Estimated effective dose: (DLP x 0.015 x size factor) mSv CTDIvol has been reviewed. It is below the limits set by the Radiation Protocol Committee (RPC). Dose modulation, iterative reconstruction, and/or weight based adjustment of the mA/kV was utilized to reduce the radiation dose to as low as reasonably achievable. FINDINGS: LINES and TUBES: Interval placement of right internal ureteral stent with proximal coil in the renal pelvis and distal coil in the bladder. Roberson catheter within the bladder. LOWER THORAX: Subsegmental atelectasis in the bilateral dependent lung bases. Unchanged nonspecific trace pericardial effusion. HEPATOBILIARY: Liver is normal in size and attenuation. Redemonstrated few simple cysts in the left hepatic lobe and hepatic hilum. No biliary ductal dilation. GALLBLADDER: No radio-opaque stones or sludge. No wall thickening. SPLEEN: No splenomegaly. PANCREAS: No focal masses or ductal dilatation. ADRENALS: No adrenal nodules KIDNEYS/URETERS: Kidneys enhance symmetrically. Interval placement of right internal ureteral stent with decreased size of right renal pelvis. Persistent stranding tracking along the right ureter which is obscured in the right side of the pelvis. Left renal collecting system and ureter are unremarkable. Redemonstrated right renal cyst. No stones. GI TRACT: No evidence of bowel obstruction. Rectum and distal sigmoid colon are compressed by pelvic mass. Few scattered colonic diverticula without evidence of acute diverticulitis. Appendix is normal. PELVIC ORGANS/BLADDER: Redemonstrated bulky centrally necrotic mass centered in the region of the prostate measuring up to 10 x 8.7 x 7 cm with suspected invasion along the posterior/inferior bladder wall. Diffuse hyperattenuating filling defect throughout the bladder, likely represents blood products/hematoma and invasive mass. Small focus of air within the bladder, likely related to Roberson catheter. LYMPH NODES: Redemonstrated bulky lymphadenopathy along the right greater than left pelvic sidewalls, for example conglomerate lymphadenopathy along the right pelvic sidewall measures up to 5 cm however this is poorly demonstrated from pelvic mass. Additional right external iliac chain lymph nodes, for example measuring up to 2.1 cm in short axis (series 2 image 69). Retroperitoneal lymphadenopathy extends to the level of the kidneys, for example measuring up to 3.1 center erosions or access on the right (series 2 image 40). VESSELS: Abdominal aorta and pelvic arteries remain patent. Right iliac arteries course through conglomerate lymphadenopathy. PERITONEUM / RETROPERITONEUM: No free air or fluid. BONES: No acute osseous abnormality. SOFT TISSUES: Unremarkable. IMPRESSION: 1. Hyperattenuating filling defect throughout the urinary bladder, likely represents a combination of blood products/hematoma and invasive mass. 2. Interval placement of right internal ureteral stent with decreased right hydroureteronephrosis. 3. Redemonstrated large centrally necrotic pelvic mass centered about the prostate with suspected invasion along the posterior/inferior aspect of the bladder, concerning for malignancy. 4. Redemonstrated extensive right greater than left pelvic sidewall, iliac chain, and retroperitoneal lymphadenopathy. Signed by: Dr. Hardy Zuñiga M.D. on 01/11/2020 7:25 PM
[2020-01-11] MEDS ORDERED: IOPAMIDOL 370 MG/ML 200 ML INFUS..BTL INJ ONE (22:37)
[2020-01-11] MEDS ORDERED: SODIUM CHLORIDE 0.9% 50ML 50 ML ONE (22:37)
[2020-01-12] VITALS (8 sets, daily range): BP systolic 125–140; BP diastolic 75–79
[2020-01-12] MEDS: PIPERACILLIN/TAZO 2.25 GM 50 ML IV SCH ×3 (05:46→22:00)
[2020-01-12] MEDS: TRAMADOL HCL 50 MG TAB PO PRN ×2 (06:23→16:04)
--- NOTE | 2020-01-12 07:00 | NUR ---
BEDSIDE SHIFT REPORT RECEIVED FROM THE JEWEL SAWYER RN. EDUCATED PT ABOUT FALL PRECAUTIONS. PT VERBALIZED UNDERSTANDING. CALL LIGHT WITH IN EASY REACH. BED IS LOW AND LOCKED. SIDE RAILS X2. ALL SAFETY MEASURES IN PLACE. PT DENIES NEEDS AT THIS TIME.
[2020-01-12] MEDS: ACETAMINOPHEN/CODEINE 300MG - 30MG TAB PO PRN ×2 (09:03→20:36)
--- NOTE | 2020-01-12 09:38 | NUR ---
ORDER RECEIVED FOR HOME IV ABX; INVANZ 1GM IV X14 DAYS W WEEKLY CBC AND CMP. WEEKLY LINE CARE AND PRN. CALL TO THE PT TO DISCUSS HH AND PROVIDE CHOICE. PT STATES HE LIVES W HIS AND SHE WILL BE HANDLING THE IV ABX. CONFIRMED THAT SHE WILL BE ABLE TO BE TAUGHT AT THE BEDSIDE. PT CHOSE [facility]; CHOICES [facility] AND [facility] NETWORK. REFERRAL FAXED TO [facility] @ OFF: [phone] / FAX: [phone]. CALLED [facility] TO NOTIFY OF REFERRAL. IMM LETTER EXPLAINED TO PT. PT VERBALIZED UNDERSTANDING. IMM LETTER SIGNED. COPY TO PT AND COPY TO CHART.
--- NOTE | 2020-01-12 13:45 | NUR ---
CALL RECEIVED FROM [facility] ABDUL. STATES THEY NEEDED THE FIRST DOSE OF MERREM TO BE GIVEN IN THE HOSPITAL IF POSSIBLE. COSTA SPOKE W BAR POINTER; GERALDO, RN. SHE CALLED JM WILLAMS TO GET A 1 X DOSE OF MERREM, BECAUSE THE PT HAD NEVER RECEIVED MERREM. CALL TO PRATIMA TO INFORM 1ST DOSE OF MERREM WILL BE GIVEN. STATES SHE WILL NEED A SIGNATURE FROM ID. INSTRUCTED TO FAX ORDER TO DR. WILLAMS'S OFFICE @ [phone]. NOTIFIED JM. STATES SHE WILL GET SOMEONE THERE TO SIGN THE ORDER. [facility]IMA ABDUL NOTIFIED. AWAITING NAME OF HH AGENCY TO COMPLETE REFERRAL.
[2020-01-12 14:16] LABS: BASOPHILS % 0.4 % (0.0-1.0); EOSINOPHILS # (AUTO) 0.2 (0.0-0.4); EOSINOPHILS % 3.4 % (0.0-6.0); HEMATOCRIT 30.3 % (38.2-49.6); HEMOGLOBIN 10.3 g/dL (14.0-18.0); LYMPHOCYTES # (AUTO) 1.4 (1.0-3.2); LYMPHOCYTES % 24.9 % (18.0-39.1); MEAN CORPUSCULAR HEMOGLOBIN 28.2 pg (28-32); MONOCYTES # (AUTO) 0.8 (0.2-0.8); MONOCYTES % 14.5 % (4.4-11.3); NEUTROPHILS # (AUTO) 3.2 (2.1-6.9); NEUTROPHILS % 56.4 % (38.7-80.0); PLATELET COUNT 319 x10e3/uL (140-360); RED BLOOD COUNT 3.65 x10e6/uL (4.3-5.7); RED CELL DISTRIBUTION WIDTH 13.3 % (11.7-14.4)
[2020-01-12] MEDS ORDERED: MEROPENEM 1GM 100 ML IV ONE (15:00)
--- NOTE | 2020-01-12 15:42 | NUR ---
INFECTIOUS DISEASE CONSULT NOTE DR. LESLEY WILLAMS HPI: The patient presents with a few days of pain and burning with urination. Pt reports fever and chills as well. COVID negative, morton placed upon arrival Denies PMH, Denies Family HX, denies surgical hx. ROS: +fatigue ALL 14 POINT ROS NEG UNLESS OTHERWISE NOTED LABS: reviewed RADIOLOGY: reviewed PHYSICAL EXAM: GENERAL: awake, alert HEENT: normocephalic, atraumatic CV: s1, s2, no s3, s4 CHEST: diminished, symmetric expansion ABD: soft, non-tender, non-distended EXT: moves all, no joint swelling NEURO: no large focal neuro deficit IMPRESSION: UTI Ecoli Sepsis present on admission Prostate Cancer PLAN: IV ABT arranged for home Merrem 1gm IV x2 weeks Reviewed CT ABD/Pelvis and discussed with team follow up outpatient in 2-3 weeks Simran Hutson MSN, COAL GRADER, [facility]- Lesley Willams M.D.
--- NOTE | 2020-01-12 16:47 | NUR ---
PT HH NOT READY YET PER CASE MANAGEMENT. INFORMED THE SAME TO DR. HERNANDES. EDUCATED PT ABOUT THE SAME.
--- NOTE | 2020-01-12 17:34 | NUR ---
CALL TO [facility] ABDUL. STATES SHE STILL HAS NOT RECEIVED THE ORDER. JM WILLAMS NOTIFIED AND REFAXED THE ORDER. STILL NO CONFIRMATION PER PRATIMA THAT ORDER WAS RECEIVED. STATES SHE ALSO HAS NOT BEEN ABLE TO FIND A HOME HEALTH AGENCY TO ACCEPT THE PT. STATES HIS POLICY IS [employer] AND NO ONE ACCEPTS. NAYAN / BEDSIDE NURSE NOTIFIED. PT HAS SPOKE Roe ANDUJAR PER NAYAN.
--- NOTE | 2020-01-12 19:05 | NUR ---
BEDSIDE SHIFT REPORT GIVEN TO THE WATCH LEADER RN. PT DENIED FURTHER NEEDS.
--- NOTE | 2020-01-12 19:45 | NUR ---
Received pt in bed awake and orientated. Pt c/o constipation, will notify md. Bedside report completed. Pt with no other c/o at this time. Bed low and locked, call light and personal items within reach. No s/sx of acute distress noted.
--- NOTE | 2020-01-12 21:01 | NUR ---
Call placed to Dr. Mahamed Ayala for medication spoke with Gelacio, awaiting return call.
[2020-01-13] VITALS (8 sets, daily range): BP systolic 127–141; BP diastolic 73–80
[2020-01-13] MEDS: PIPERACILLIN/TAZO 2.25 GM 50 ML IV SCH ×2 (06:12→13:06)
--- NOTE | 2020-01-13 06:48 | NUR ---
RECEIVED BEDSIDE SHIFT REPORT FROM OFF GOING NURSE. PATIENT IS RESTING IN BED, NO ACUTE DISTRESS NOTED. CALL LIGHT WITHIN REACH. BED IN THE LOWEST POSITION.
[2020-01-13] MEDS: TRAMADOL HCL 50 MG TAB PO PRN (07:46)
--- NOTE | 2020-01-13 14:35 | NUR ---
PATIENT STATES HE HAD PRUNE JUICE LAST NIGHT SINCE HE WAS FEELING CONSTIPATED, NOW PATIENT C/O HAVING DIARRHEA. PAGED DR. Mahamed HERNANDES AT THIS TIME FOR NEW ORDERS.
[2020-01-13] MEDS ORDERED: DIPHENOXYLATE/ATROPINE TAB PO ONE (15:30)
--- NOTE | 2020-01-13 19:13 | NUR ---
BEDSIDE SHIFT REPORT GIVEN TO ONCOMING NURSE. PATIENT IS IN STABLE CONDITION, NO S/S OF DISTRESS NOTED AT THIS TIME. CALL LIGHT WITHIN REACH. BED IN THE LOWEST POSITION.
--- NOTE | 2020-01-13 19:20 | NUR ---
Patient visited in room during nursing rounds. Patient alert and oriented x3. Ambulatory in room prn. On contact isolation for ESBL of urine. Roberson catheter in place for urinary obstruction. Urine output is dark katrina to pink-tinged. Pt on scheduled IV antibiotic treatment. Call brush within reach. Will monitor pt closely.
--- NOTE | 2020-01-13 19:55 | Progress Note ---
DATE: 01/13/2020 SUBJECTIVE: Mr. Amezquita is lying in bed comfortably. He does have history of prostate cancer. He has been seen by Dr. Maloney and he was supposed to see Hematology Oncology soon. However, he has this pyelonephritis where he is being admitted. The patient is currently alert, oriented, does not seem to be in acute distress. He is doing well. His culture showed E coli, which was ESBL. PHYSICAL EXAMINATION: GENERAL: Currently alert, oriented, does not seem to be in acute distress. VITAL SIGNS: Stable, currently afebrile. HEENT: He is not icteric. NECK: Supple. CHEST: Clear. HEART: S1 and S2. ABDOMEN: Soft. Bowel sounds present. EXTREMITIES: No edema. SKIN: No rash. IMPRESSION: 1. Sepsis on admission, pyelonephritis with extended-spectrum beta-lactamases. 2. Acute kidney injury, better. We will change him to meropenem 1 g IV q.8. Arrange for 2 weeks of IV meropenem 1 g q.8. PICC line to be arranged. Discussed with the patient. Discussed with Case Management. We will follow. 3. Prostate cancer. Per Urology. MD CASTILLO Abebe/GAIL /[id number]
[2020-01-13] MEDS: MEROPENEM 1GM 100 ML IV SCH (21:50)
[2020-01-13] MEDS ORDERED: MEROPENEM 1GRAM 1 GM in SODIUM CHLORIDE 0.9% 100 ML 100 ML IV SCH (22:00)
[2020-01-14] VITALS (8 sets, daily range): BP systolic 116–149; BP diastolic 58–79
[2020-01-14] MEDS: MEROPENEM 1GM 100 ML IV SCH ×3 (06:30→21:45)
--- NOTE | 2020-01-14 06:48 | NUR ---
Received bedside shift report from off going nurse. Patient is resting in bed, no acute distress noted. Call light within reach. Bed in the lowest position.
[2020-01-14] MEDS: ACETAMINOPHEN/CODEINE 300MG - 30MG TAB PO PRN ×3 (07:00→21:47)
[2020-01-14] MEDS ORDERED: DIPHENOXYLATE/ATROPINE TAB PO PRN (10:00)
--- NOTE | 2020-01-14 15:28 | Progress Note ---
DATE: 01/14/2020 SUBJECTIVE: The patient is seen and evaluated. Available labs and notes reviewed. Discussed with Dr. Grijalva. Discussed with the nurse. REVIEW OF SYSTEMS: No nausea, vomiting, fever, chills, chest pain, headache, rash, dysuria, or polyuria. PHYSICAL EXAMINATION: VITAL SIGNS: Temperature 98, pulse 81, respiration 19, and blood pressure 124/66. GENERAL: Awake and alert. No acute distress. CV: S1 and S2. CHEST: Equal expansion. Clear to auscultation. No acute distress. ABDOMEN: Soft, nontender, no distension. HEENT: Moist. No pallor. No JVD. EXTREMITIES: No acute findings. MEDICATION LIST: Reviewed. From Infectious Disease point of view, the patient is on meropenem. LABORATORY STUDIES: No new CBC or BMP available. Serology; coronavirus PCR was not detected on 01/08. C. difficile was negative on 01/13. MICROBIOLOGY: Urine culture showed ESBL E. coli x2 different days. Blood culture was negative. ASSESSMENT AND PLAN: 1. Sepsis, on admission due to pyelonephritis with extended-spectrum beta-lactamase organism. 2. Acute kidney injury. 3. Dysuria. 4. Pain. 5. Overall improved, plan to discharge the patient with IV antibiotics as outpatient. The patient also has a history of prostate cancer. Further management of this patient is based on daily findings on laboratory and physical exam. Please refer to chart for more information. Dictated by Saeid May PA-C (Al) Thompson Grijalva MD /MODL /[id number]
[2020-01-14] MEDS: TRAMADOL HCL 50 MG TAB PO PRN (17:31)
--- NOTE | 2020-01-14 19:18 | NUR ---
BEDSIDE SHIFT REPORT GIVEN TO ONCOMING NURSE. PATIENT IS RESTING IN BED, NO S/S OF DISTRESS NOTED AT THIS TIME. CALL LIGHT WITHIN REACH. BED IN THE LOWEST POSITION.
--- NOTE | 2020-01-14 19:40 | NUR ---
Patient visited in room during nursing rounds. Patient alert and oriented x3. Ambulatory in room prn. On contact isolation for ESBL of urine. Roberson catheter in place for urinary obstruction. Urine output is katrina colored. Pt on scheduled IV antibiotic treatment. Call brush within reach. Will monitor pt closely.
[2020-01-15] VITALS (8 sets, daily range): BP systolic 117–137; BP diastolic 64–81
[2020-01-15] MEDS: TRAMADOL HCL 50 MG TAB PO PRN ×2 (02:22→08:30)
[2020-01-15] MEDS: MEROPENEM 1GM 100 ML IV SCH ×3 (06:29→21:59)
--- NOTE | 2020-01-15 12:05 | NUR ---
INFECTIOUS DISEASE CONSULT NOTE DR. LESLEY WILLAMS HPI: The patient presents with a few days of pain and burning with urination. Pt reports fever and chills as well. COVID negative, morton placed upon arrival Denies PMH, Denies Family HX, denies surgical hx. ROS: +fatigue ALL 14 POINT ROS NEG UNLESS OTHERWISE NOTED LABS: reviewed RADIOLOGY: reviewed PHYSICAL EXAM: GENERAL: awake, alert HEENT: normocephalic, atraumatic CV: s1, s2, no s3, s4 CHEST: diminished, symmetric expansion ABD: soft, non-tender, non-distended EXT: moves all, no joint swelling NEURO: no large focal neuro deficit IMPRESSION: UTI Ecoli Sepsis present on admission Prostate Cancer PLAN: IV ABT arranged for home Merrem 1gm IV x2 weeks follow up outpatient in 2-3 weeks Simran Hutson MSN, SALESPERSON [employer], AGACNP-BC Lesley Willams M.D.
[2020-01-15] MEDS: ACETAMINOPHEN/CODEINE 300MG - 30MG TAB PO PRN ×2 (13:48→21:33)
--- NOTE | 2020-01-15 15:54 | NUR ---
Called and spoke to Mini at [facility]. States she's still pending home health set up for pt. Has tried multiple companies, still waiting on one to accept.
--- NOTE | 2020-01-15 18:45 | NUR ---
patient resting in bed, Alert with no distress
[2020-01-16] VITALS: BP 144/81
[2020-01-16 04:00] VITALS: BP 137/77
[2020-01-16] MEDS: MEROPENEM 1GM 100 ML IV SCH (05:36)
[2020-01-16] MEDS: ACETAMINOPHEN/CODEINE 300MG - 30MG TAB PO PRN (05:36)
[2020-01-16 08:30] VITALS: BP 140/77
[2020-01-16 08:48] VITALS: BP 140/77
[2020-01-16] MEDS: TRAMADOL HCL 50 MG TAB PO PRN (10:19)
--- NOTE | 2020-01-16 11:17 | NUR ---
Dr Mahamed Ayala had rounds , stated patient should go home today, he said to call Dr Grijalva to switch with PO antibiotics, Notified Dr Grijalva , he said he will come and write the prescription. Also Talked to Dr Maloney that patient go home with Roberson's catheter
[2020-01-16 11:42] VITALS: BP 137/77
--- NOTE | 2020-01-16 12:18 | NUR ---
CM to pt's bedside to update him on status of referral. Pt states MD informed him that he's going home with oral antibiotic. Spoke to DOMINGA Kessler who states Dr. Grijalva to come write prescription for oral abx. CM called Mini with [facility] and updated her to cancel referral for iv abx.
--- NOTE | 2020-01-16 14:15 | NUR ---
patient discharged home, per Dr Grijalva he will call prescription to his pharmacy ([phone]), PICC line removed, pressure dressing applied. leg bag provided for Roberson's catheter, denies any pain, no distress noted, His here to pick him.
--- NOTE | 2020-01-16 16:54 | NUR ---
Dr Grijalva called prescription Fosfomycin 3gm PO x1 to [phone]
== END 2020-01-16 14:15 | disposition home or self-care (01) | DRG 872 ==
LOC: ER 22:18 → ERHOLD 01-09 00:34 → MED/SURG3 01-09 00:41 → INTOOBSV 01-11 09:20 → OBSVTOIN 01-11 09:20
PROC: 02HV33Z Insertion of Infusion Device into Superior Vena Cava, Percutaneous Approach (ICD-10-PCS; principal; 2020-01-11)
PROC: B548ZZA Ultrasonography of Superior Vena Cava, Guidance (ICD-10-PCS; 2020-01-11)
DX: A41.9 Sepsis, unspecified organism (principal); N10 Acute pyelonephritis; Z16.12 Extended spectrum beta lactamase (ESBL) resistance; N17.9 Acute kidney failure, unspecified; N13.30 Unspecified hydronephrosis; C7B.8 Other secondary neuroendocrine tumors; C61 Malignant neoplasm of prostate; B96.20 Unspecified Escherichia coli [E. coli] as the cause of diseases classified elsewhere; Z11.59 Encounter for screening for other viral diseases; Z96.0 Presence of urogenital implants; Z87.440 Personal history of urinary (tract) infections; N40.1 Benign prostatic hyperplasia with lower urinary tract symptoms; R33.8 Other retention of urine; D63.8 Anemia in other chronic diseases classified elsewhere
CPT/HCPCS: 36415; 36569; 51700; 71045; 74177; 80048; 80053; 81001; 82948; 83605; 85025; 85610; 85730; 87040; 87086; 87186; 87493; 97139; 99284; G0378; J0696; J2543; J7040; J7050; Q9967